=== PATIENT | male | born 1985 | race Caucasian/White ===

== ENCOUNTER 2019-02-26 20:40 | Emergency (ER) | payer OTHER, SELFPAY ==
[2019-02-26 20:40] VITALS: BP 133/83; PULSE 92; RESP 15; TEMP 36.8; O2SAT 98; BMI 23.6
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
--- NOTE | 2019-02-26 20:49 | RAD_ITS ---
STUDY: X-RAY - RIGHT FOOT CLINICAL: Male, 33 years old. Box fell on foot, pain TECHNIQUE: 3 view(s) of the foot. COMPARISON: None. FINDINGS: Normal talus, calcaneus, and tarsal bones. Normal visualized subtalar, talonavicular, calcaneocuboid, tarsal and tarsometatarsal articulations. Normal metatarsi. Normal metatarsophalangeal joint of the great toe. Normal tibial and fibular sesamoid bones. Normal interphalangeal joint of the great toe. Normal phalanges of the great toe. Normal second through fifth metatarsophalangeal joints. Normal interphalangeal joints and phalanges of the lesser toes. The soft tissue structures are unremarkable. RAD/Foot min 3 Views IMPRESSION: No acute osseous injury is evident. Electronically Signed: Alexis Slade MD at 21:13 EDT Tel , Service support ,
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
== END 2019-02-26 21:32 | disposition home or self-care (01) ==
PROVIDERS: Emergency Provider Emergency Medicine; Family Provider Family Medicine; PCP Family Medicine
DX: S80.11XA Contusion of right lower leg, initial encounter (principal); S90.31XA Contusion of right foot, initial encounter; S97.81XA Crushing injury of right foot, initial encounter; S87.81XA Crushing injury of right lower leg, initial encounter; W20.8XXA Other cause of strike by thrown, projected or falling object, initial encounter; Y93.9 Activity, unspecified; Y92.512 Supermarket, store or market as the place of occurrence of the external cause; Y99.9 Unspecified external cause status
CPT/HCPCS: 73590; 73630; 99282

== ENCOUNTER 2019-04-15 14:45 | Emergency (ER) | payer OTHER, SELFPAY ==
[2019-04-15 14:46] VITALS: BP 120/105; PULSE 98; RESP 16; TEMP 36.6; O2SAT 100; BMI 25.0
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
[2019-04-15 15:27] VITALS: BP 130/90; PULSE 91; RESP 18; O2SAT 99
== END 2019-04-15 15:28 | disposition home or self-care (01) ==
LOC: ED 15:10
PROVIDERS: Emergency Provider Emergency Medicine; Family Provider Family Medicine; PCP Family Medicine
DX: E86.0 Dehydration (principal); T67.5XXA Heat exhaustion, unspecified, initial encounter; X58.XXXA Exposure to other specified factors, initial encounter; Y93.9 Activity, unspecified; Y92.9 Unspecified place or not applicable; Y99.9 Unspecified external cause status; Z87.891 Personal history of nicotine dependence
CPT/HCPCS: 99284

== ENCOUNTER → 2021-05-23 10:29 | Outpatient (CLI) | payer OTHER, SELFPAY | PROVIDERS: PCP Family Medicine; Referring Provider Family Medicine; Visit Provider Family Medicine | DX: G47.10 Hypersomnia, unspecified (principal) | CPT/HCPCS: 95806 ==

== ENCOUNTER 2022-12-03 14:42 | Emergency (ER) | payer OTHER, SELFPAY ==
[2022-12-03] VITALS (18 sets, daily range): BP systolic 132–158; BP diastolic 88–113; PULSE 81–115; RESP 13–28; TEMP 36.6; O2SAT 94–99; BMI 25.9; BMI 26.0
--- NOTE | 2022-12-03 14:49 | CT_ITS ---
STUDY: CT HEAD STROKE PROTOCOL W/O CONTRAST INJECTION REASON FOR EXAM: Male, 36 years old. Neuro deficit, acute, stroke suspected RADIATION DOSAGE (If Supplied By Facility): CTDIvol = ( 44.99 ) mGy, DLP = ( 829.85 ) mGycm TECHNIQUE: Transaxial CT imaging of the brain was performed without administration of intravenous contrast material. Individualized dose optimization techniques were used for this CT. COMPARISON: No relevant priors. FINDINGS: Normal soft tissue structures. Normal calvarium. Normal size ventricles and extra-axial spaces for the patient''s age. Normal white matter tracts of the cerebral hemispheres. Normal basal ganglia and thalami. Normal brainstem. Normal cerebellum. There is no intracranial hemorrhage. There are no findings of an acute ischemic infarction. Partial opacification of the left maxillary sinus. 1.1 cm polyp in the anterior aspect of the left sphenoid sinus. ASPECT score: 10 CT/STROKE Brain/Head without Cont IMPRESSION: Normal unenhanced CT scan of the brain. Partial opacification of the left maxillary sinus and 1.1 cm polyp in the anterior aspect of the left sphenoid sinus.. N.B. : The above Results were Read Back by Yves Nails MD to Dr Benjamin MD, and understanding confirmed on 12/03/2022 15:06:11 (ET). Electronically Signed: Yves Nails MD at 15:08 EDT ,
--- NOTE | 2022-12-03 14:50 | CT_ITS ---
STUDY: CTA HEAD AND NECK WITH CONTRAST REASON FOR EXAM: Male, 36 years old. Neuro deficit, acute, stroke suspected RADIATION DOSAGE (If Supplied By Facility): CTDIvol = ( 17.5 ) mGy, DLP = ( 757.56 ) mGycm TECHNIQUE: CT angiography was performed with a multi-detector CT scanner. Data acquisition was obtained from the skull base through the vertex following intravenous administration of IV 100mL [id number]-[id number]. MIP images were reconstructed from the axial data set. Post-processing of the angiographic images was performed, with multiplanar reformation and 3D reconstruction. Individualized dose optimization techniques were used for this CT. COMPARISON: No relevant priors. FINDINGS: Normal bilateral petrous carotid arteries. Normal right cavernous carotid artery with a normal supraclinoid bifurcation. Normal left cavernous carotid artery with a normal supraclinoid bifurcation. Normal right A1 segments of the anterior cerebral artery. There is hypoplastic development of the left A1 segment of the anterior cerebral arteries with an atretic but intact artery. Normal intact anterior communicating artery (ACOM). Normal bilateral A2 segments of the anterior cerebral arteries. Normal right M1 and M2 segments of the middle cerebral arteries, with a normal M1 bifurcation. Normal left M1 and M2 segments of the middle cerebral arteries, with a normal M1 bifurcation. Normal right posterior communicating artery (PCOM). Normal left posterior communicating artery (PCOM). Normal bilateral vertebral arteries. Normal basilar artery with a normal basilar bifurcation. The visualized bilateral superior cerebellar (SCA) arteries are normal. Normal bilateral P1, P2 and visualized P3 segments of the posterior cerebral arteries. There is no demonstrated aneurysm of the tejon of [place]. Polyp or retention cyst at the base of the left maxillary sinus. Mucosal polyp or retention cyst seen in the left sphenoid sinus. AORTIC ARCH: Normal visualized aortic arch. Normal origins of the brachiocephalic, left common carotid, and left subclavian arteries. RIGHT CAROTID ARTERIES: Normal right common carotid artery (CCA). Normal right common carotid bulb. Normal origin of the right internal carotid (ICA) artery without a hemodynamically significant stenosis. Normal visualized cervical portion of the right internal carotid artery. Normal origin of the right external carotid artery (ECA). LEFT CAROTID ARTERIES: Normal left common carotid artery (CCA). Normal left common carotid bulb. Normal origin of the left internal carotid (ICA) artery without a hemodynamically significant stenosis. Normal visualized cervical portion of the left internal carotid artery. Normal origin of the left external carotid artery (ECA). VERTEBRAL ARTERIES: Normal bilateral vertebral arteries. CT/STROKE CTA Head AND Neck W/Con IMPRESSION: Normal CTA Head and neck with contrast. N.B. : The above Results were Read Back by Yves Nails MD to Pratt MD, and understanding confirmed on 12/03/2022 15:26:21 (ET). Electronically Signed: Yves Nails MD at 15:28 EDT ,
--- NOTE | 2022-12-03 14:51 | NURSING ---
STROKE ALERT CALLED
--- NOTE | 2022-12-03 14:52 | NURSING ---
NO OLD EKGS
--- NOTE | 2022-12-03 14:53 | ED.VIS.STROK ---
HPI <Dr. 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 He denies smoking or drug use. Patient states at approximately 1430 he had trouble seeing out of his left eye. His partner states he had trouble visualizing the stop sign and had trouble reading. He believes it was only the left eye and not the right eye. He also had trouble with his balance and complained of numbness left side of his face. He has no history of hypercoagulability. He has no history of migraine headaches. There is no history of recent head trauma. There is no family history of subarachnoid hemorrhage. Prior similar symptoms: No Recent Illness/Hospitalization: No PFSH <Dr. Rob Alexander MD - Last Filed: 12/04/22 07:13> PFSH Medical History no medical history no medical history Home Medications NK 02/26/19 [History Last Taken Unknown] Allergy/AdvReac Type Severity Reaction Status Date / Time No Known Allergies Allergy Verified 12/03/22 14:46 Social History (Updated 12/03/22 @ 14:[address] Rob Alexander MD) household members: spouse and children Smoking Status: Former smoker substance use type: does not use ROS <Dr. Rob Alexander MD - Last Filed: 12/04/22 07:13> ROS ED Constitutional Constitutional ED: Denies chills, fever(s), subjective, sweats or weakness Eyes Eyes: Reports blurry vision left and change in vision left; Denies diplopia ENT ENT ED: Denies ear pain, rhinorrhea or sore throat Cardiovascular Cardiovascular: Denies chest pain, palpitations, paroxysmal nocturnal dyspnea or racing heartbeat Respiratory/Chest Respiratory/Chest: Denies cough, dyspnea, dyspnea on exertion or paroxysmal nocturnal dyspnea Gastrointestinal Gastrointestinal: Denies abdominal pain, constipation, diarrhea, melena, nausea or vomiting Genitourinary Genitourinary ED: Denies dysuria, hematuria or urinary frequency Musculoskeletal Musculoskeletal: Denies arthralgias, back pain, myalgias or neck pain Integumentary Denies abscess Neurologic Neurologic: Denies headache(s), paresthesias or weakness Psychiatric Psychiatric: Denies anxiety or depression Endocrine Endocrinology: Denies polydipsia, polyphagia or polyuria Hematologic/Lymphatic Hematologic/Lymphatic: Denies easy bleeding or easy bruising EXAM <Dr. Rob Alexander MD - Last Filed: 12/04/22 07:13> Physical Exam Const Vital Signs: 12/03/22 14:43 12/03/22 14:49 12/03/22 15:47 Temperature 98 F Temperature Source Temporal Pulse Rate 81 107 H Respiratory Rate 16 17 Blood Pressure 158/105 H Blood Pressure Mean 122 Pulse Ox 99 97 Oxygen Delivery Method Room Air Room Air 12/03/22 15:50 12/03/22 16:00 12/03/22 16:00 Temperature Temperature Source Pulse Rate 112 H 112 H 112 H Respiratory Rate 28 H 21 H 21 H Blood Pressure 156/98 H Blood Pressure Mean 115 Pulse Ox 96 98 98 Oxygen Delivery Method 12/03/22 16:10 12/03/22 16:15 12/03/22 16:20 Temperature Temperature Source Pulse Rate 103 H 105 H 115 H Respiratory Rate 19 H 21 H 25 H Blood Pressure 150/88 H Blood Pressure Mean 107 Pulse Ox 96 97 96 Oxygen Delivery Method 12/03/22 16:30 12/03/22 16:30 12/03/22 16:40 Temperature Temperature Source Pulse Rate 102 H 102 H 113 H Respiratory Rate 15 15 21 H Blood Pressure 139/101 H Blood Pressure Mean 113 Pulse Ox 94 94 95 Oxygen Delivery Method 12/03/22 16:45 12/03/22 16:50 12/03/22 17:00 Temperature Temperature Source Pulse Rate 111 H 110 H 97 Respiratory Rate 16 20 H 17 Blood Pressure 135/98 H 133/97 H Blood Pressure Mean 107 109 Pulse Ox 95 95 96 Oxygen Delivery Method 12/03/22 17:00 12/03/22 17:10 12/03/22 17:15 Temperature Temperature Source Pulse Rate 97 102 H 101 H Respiratory Rate 17 23 H 16 Blood Pressure 132/113 H Blood Pressure Mean 119 Pulse Ox 96 96 98 Oxygen Delivery Method 12/03/22 14:49 12/03/22 17:15 12/03/22 18:04 Temperature Temperature Source Pulse Rate 81 101 H Respiratory Rate 16 16 Blood Pressure 158/105 H Blood Pressure Mean 122 Pulse Ox 99 98 97 Oxygen Delivery Method 12/03/22 18:10 12/03/22 18:14 Temperature Temperature Source Pulse Rate 102 H 94 Respiratory Rate 23 H 13 Blood Pressure 132/92 H Blood Pressure Mean 103 Pulse Ox 96 96 Oxygen Delivery Method Positive well nourished and well developed General Appearance ED: well developed and NAD HEENT Reports moist mucous membranes atraumatic Eyes EOMs intact bilaterally Eyes Narrative: There is no nystagmus. General Eye ED: Negative for pale conjunctiva or scleral icterus Neck no lymphadenopathy, supple and no JVD Chest Wall inspection of chest normal and palpation of chest normal Resp normal respiratory effort and clear to auscultation bilaterally Cardio no murmurs Rate: regular rate Rhythm: regular rhythm Heart Sounds: S1 normal and S2 normal GI normal to inspection, nondistended, normoactive bowel sounds, soft to palpation, non-tender, non-distended and no masses Extremity normal to inspection Neuro oriented x3, CN's II-XII intact bilaterally and no sensory deficits noted [place] Coma Scale: document GCS findings Spontaneous Obeys Commands Oriented 15 Sensorium / Orientation: alert Speech: speech normal Gait (Neuro): normal gait Motor Exam: strength 5/5 throughout Psych mental status grossly normal Skin no wounds General Skin Exam: Negative for jaundice Lesions: no lesions Rashes: no rashes NIHSS NIHSS Initial: 1a Level of Consciousness: 0 1b LOC Questions (Score 2 if aphasic/stupor): 0 1c LOC Commands (Only score 1st attempt): 0 2 Best Gaze (If aphasic, use reflexive mvmts.): 0 3 Visual: 0 4 Facial Palsy: 0 5 Motor Arm Right (UN = amputation/fusion): 0 5 Motor Arm Left: 0 6 Motor Leg Right: 0 6 Motor Leg Left: 0 7 Limb ataxia (Only + if out of proportion): 0 8 Sensory (Aphasia/stupor=0 or 1, coma=2): 0 9 Best Language: 0 10 Dysarthria (mute, coma=2, intubated=UN): 0 11 Extinction and Inattention (only scored if +): 0 Total Score: 0 <Dr. Sabra Martínez MD - Last Filed: 12/03/22 18:18> Physical Exam Const Vital Signs: 12/03/22 14:43 12/03/22 14:49 12/03/22 15:47 Temperature 98 F Temperature Source Temporal Pulse Rate 81 107 H Respiratory Rate 16 17 Blood Pressure 158/105 H Blood Pressure Mean 122 Pulse Ox 99 97 Oxygen Delivery Method Room Air Room Air 12/03/22 15:50 12/03/22 16:00 12/03/22 16:00 Temperature Temperature Source Pulse Rate 112 H 112 H 112 H Respiratory Rate 28 H 21 H 21 H Blood Pressure 156/98 H Blood Pressure Mean 115 Pulse Ox 96 98 98 Oxygen Delivery Method 12/03/22 16:10 12/03/22 16:15 12/03/22 16:20 Temperature Temperature Source Pulse Rate 103 H 105 H 115 H Respiratory Rate 19 H 21 H 25 H Blood Pressure 150/88 H Blood Pressure Mean 107 Pulse Ox 96 97 96 Oxygen Delivery Method 12/03/22 16:30 12/03/22 16:30 12/03/22 16:40 Temperature Temperature Source Pulse Rate 102 H 102 H 113 H Respiratory Rate 15 15 21 H Blood Pressure 139/101 H Blood Pressure Mean 113 Pulse Ox 94 94 95 Oxygen Delivery Method 12/03/22 16:45 12/03/22 16:50 12/03/22 17:00 Temperature Temperature Source Pulse Rate 111 H 110 H 97 Respiratory Rate 16 20 H 17 Blood Pressure 135/98 H 133/97 H Blood Pressure Mean 107 109 Pulse Ox 95 95 96 Oxygen Delivery Method 12/03/22 17:00 12/03/22 17:10 12/03/22 17:15 Temperature Temperature Source Pulse Rate 97 102 H 101 H Respiratory Rate 17 23 H 16 Blood Pressure 132/113 H Blood Pressure Mean 119 Pulse Ox 96 96 98 Oxygen Delivery Method 12/03/22 14:49 12/03/22 17:15 12/03/22 18:04 Temperature Temperature Source Pulse Rate 81 101 H Respiratory Rate 16 16 Blood Pressure 158/105 H Blood Pressure Mean 122 Pulse Ox 99 98 97 Oxygen Delivery Method 12/03/22 18:10 12/03/22 18:14 Temperature Temperature Source Pulse Rate 102 H 94 Respiratory Rate 23 H 13 Blood Pressure 132/92 H Blood Pressure Mean 103 Pulse Ox 96 96 Oxygen Delivery Method Neuro [place] Coma Scale: document GCS findings 15 NIHSS NIHSS Initial: Total Score: 0 MDM <Dr. Rob Alexander MD - Last Filed: 12/04/22 07:13> [facility] Narrative Medical decision making narrative: With patient having headache prior to neurologic symptoms this may represent a complex migraine. This does not represent a ocular migraine since it involves only 1 eye. Concerned this may present problems with posterior circulation since he has problems with balance as well as vision. Presently his NIH is 0. History & Record Review Additional record(s) reviewed:: Prior ED visit (Patient has no records since 2019.) and Prior labs Lab Data Attestation: I reviewed the patient's lab results. Lab results narrative: White count is normal as is the H&H. Differential reveals 62% lymphocytes, 21% monocytes and 7% eosinophils.. Coags unremarkable. Basic metabolic panel is unremarkable. Troponin is normal. Labs: Laboratory Results - last 24 hr 12/03/22 12/03/22 12/03/22 15:00 15:00 15:00 WBC 5.0 RBC 5.45 Hgb 16.0 Hct 47.7 MCV 87.5 MCH 29.4 MCHC 33.5 RDW Std Deviation 39.1 RDW Coeff of Florencia 12.3 Plt Count 343 MPV 9.1 Immature Gran % (Auto) 0.200 Neut % (Auto) 7.8 L Lymph % (Auto) 62.3 H [place] % (Auto) 21.6 H Eos % (Auto) 6.9 H Baso % (Auto) 1.2 H Absolute Neuts (auto) 0.4 L Absolute Lymphs (auto) 3.14 Nucleated RBC % 0 Differential Comment SCANNED PT 13.0 INR 1.0 APTT 29.5 Sodium 141 Potassium 3.3 L Chloride 106 Carbon Dioxide 28.0 Anion Gap 7 BUN 14 Creatinine 1.02 Estim Creat Clear Calc 102.38 Est GFR (MDRD) Af Amer 105 Est GFR (MDRD) Non-Af 87 BUN/Creatinine Ratio 13.7 Glucose 107 H Calcium 9.5 Troponin I High Sens < 3 L Radiography Chest X-Ray - ED: 1 View and Read by ED Physician (Cardiac silhouette and size normal. Lung parenchyma is unremarkable. There is slight prominence of the pulmonary vessels in the perihilar region. Osseous structures unremarkable. Independent reviewed interpreted by me at 1526.) Diagnostic Testing: Clinical Impression(s) from Imaging Studies Brain CT 12/03/22 14:49 IMPRESSION: Normal unenhanced CT scan of the brain. Partial opacification of the left maxillary sinus and 1.1 cm polyp in the anterior aspect of the left sphenoid sinus.. N.B. : The above Results were Read Back by Yves Nails MD to Dr Benjamin MD, and understanding confirmed on 12/03/2022 15:06:11 (ET). Electronically Signed: Yves Nails MD at 15:08 EDT , Head/Neck CTA 12/03/22 14:50 IMPRESSION: Normal CTA Head and neck with contrast. N.B. : The above Results were Read Back by Yves Nails MD to Pratt MD, and understanding confirmed on 12/03/2022 15:26:21 (ET). Electronically Signed: Yves Nails MD at 15:28 EDT , ADDENDUM: 12/03/22 1535 IMPRESSION: Normal CTA Head and neck with contrast. N.B. : The above Results were Read Back by Yves Nails MD to Pratt MD, and understanding confirmed on 12/03/2022 15:26:21 (ET). Electronically Signed: Yves Nails MD at 15:28 EDT , Brain MRI 12/03/22 15:13 IMPRESSION: Multiple sinus polyps otherwise Normal unenhanced MRI of the brain. Electronically Signed: Delroy Solorio MD at 18:07 EDT , Chest X-Ray 12/03/22 15:22 IMPRESSION: Normal x-ray examination of the chest. Electronically Signed: Yves Nails MD at 15:32 EDT , EKG Initial EKG: Attestation: I personally reviewed and interpreted this EKG as follows: Interpretation: Sinus Tachycardia (Rate is 115. [place] to left. [place] interval is 148. Cures duration 76 ms. QT duration 3 to 24 ms.) Management Discussion w/another healthcare provider: Radiologist (I was contacted by radiologist at 1505 that the unenhanced scan was negative for any intracranial pathology. He agrees there is pathology in the right and left maxillary sinus as well as sphenoid sinus.) Treatment and Re-Evaluation Narrative: The neurologist [facility] evaluate patient. The neurologist is Dr. Morris. He agrees complex migraine versus TIA. Recommendation is MRI. If MRI is negative patient may go home. He denied history of stroke when asked by me. He states he has had migraine headaches but is never had deficit before. In light of the CBC differential patient was asked regarding any viral symptoms. He denies. Patient also states his blood pressure initially is 110. He had multiple readings with systolic in the 150 range. Diastolic has been above 100. <Dr. Sabra Martínez MD - Last Filed: 12/03/22 18:18> [facility] Lab Data Labs: Laboratory Results - last 24 hr 12/03/22 12/03/22 12/03/22 15:00 15:00 15:00 WBC 5.0 RBC 5.45 Hgb 16.0 Hct 47.7 MCV 87.5 MCH 29.4 MCHC 33.5 RDW Std Deviation 39.1 RDW Coeff of Florencia 12.3 Plt Count 343 MPV 9.1 Immature Gran % (Auto) 0.200 Neut % (Auto) 7.8 L Lymph % (Auto) 62.3 H [place] % (Auto) 21.6 H Eos % (Auto) 6.9 H Baso % (Auto) 1.2 H Absolute Neuts (auto) 0.4 L Absolute Lymphs (auto) 3.14 Nucleated RBC % 0 Differential Comment SCANNED PT 13.0 INR 1.0 APTT 29.5 Sodium 141 Potassium 3.3 L Chloride 106 Carbon Dioxide 28.0 Anion Gap 7 BUN 14 Creatinine 1.02 Estim Creat Clear Calc 102.38 Est GFR (MDRD) Af Amer 105 Est GFR (MDRD) Non-Af 87 BUN/Creatinine Ratio 13.7 Glucose 107 H Calcium 9.5 Troponin I High Sens < 3 L Radiography Diagnostic Testing: Clinical Impression(s) from Imaging Studies Brain CT 12/03/22 14:49 IMPRESSION: Normal unenhanced CT scan of the brain. Partial opacification of the left maxillary sinus and 1.1 cm polyp in the anterior aspect of the left sphenoid sinus.. N.B. : The above Results were Read Back by Yves Nails MD to Dr Benjamin MD, and understanding confirmed on 12/03/2022 15:06:11 (ET). Electronically Signed: Yves Nails MD at 15:08 EDT , Head/Neck CTA 12/03/22 14:50 IMPRESSION: Normal CTA Head and neck with contrast. N.B. : The above Results were Read Back by vYes Nails MD to Pratt MD, and understanding confirmed on 12/03/2022 15:26:21 (ET). Electronically Signed: Yves Nails MD at 15:28 EDT , ADDENDUM: 12/03/22 1535 IMPRESSION: Normal CTA Head and neck with contrast. N.B. : The above Results were Read Back by Yves Nails MD to Pratt MD, and understanding confirmed on 12/03/2022 15:26:21 (ET). Electronically Signed: Yves Nails MD at 15:28 EDT , Brain MRI 12/03/22 15:13 IMPRESSION: Multiple sinus polyps otherwise Normal unenhanced MRI of the brain. Electronically Signed: Delroy Solorio MD at 18:07 EDT , Chest X-Ray 12/03/22 15:22 IMPRESSION: Normal x-ray examination of the chest. Electronically Signed: Yves Nails MD at 15:32 EDT , Treatment and Re-Evaluation Narrative: The neurologist [facility] evaluate patient. The neurologist is Dr. Morris. He agrees complex migraine versus TIA. Recommendation is MRI. If MRI is negative patient may go home. He denied history of stroke when asked by me. He states he has had migraine headaches but is never had deficit before. In light of the CBC differential patient was asked regarding any viral symptoms. He denies. Patient also states his blood pressure initially is 110. He had multiple readings with systolic in the 150 range. Diastolic has been above 100. Patient signed out to me pending MRI of the brain. MRI returns with no acute findings. Patient is had no recurrent symptoms while in the emergency room. Systolic pressure is currently in the 130s. Patient will be discharged home with at this time. Discharge Plan Triage Chief Complaint: Neuro S/Sx ED Provider: Rob Alexander Dx/Rx/DC Orders Clinical Impression: Atypical migraine, Elevated blood pressure reading without diagnosis of hypertension, Sinus tachycardia Instructions: ED Headache Unspecified, ED Hypertension, To Be Confirmed Prescriptions: No Action NK Primary Care Provider: Ramon Ojeda Referrals: Ramon Ojeda DO [Primary Care Provider] - 1 Week Disposition Disposition: Home, Self Care Discharge Date/Time: 12/03/22 18:22
[2022-12-03 15:10] LABS: Absolute Lymphocyte Count 3.14 X10^3/uL (0.83-4.51); Absolute Neutrophil Count 0.4 X10^3/uL (2.0-7.7); Basophil# 0.06 X10^3/uL; Basophil% 1.2 % (0-1); Eosinophil# 0.35 X10^3/uL; Eosinophils% 6.9 % (0-5); Hematocrit 47.7 % (40-54); Lymphocyte # 3.14 X10^3/ul (0.83-4.51); Lymphocyte % 62.3 % (19-41); Mean Corp Hgb Conc 33.5 g/dL (32-36); Mean Corpuscular Hgb 29.4 pg (27.0-32.0); Mean Corpuscular Volume 87.5 fL (80-94); Mean Platelet Vol. 9.1 fl (6.2-12.0); Monocyte# 1.09 X10^3/uL; Monocyte% 21.6 % (0-10); NRBC Flagged by Analyzer 0 % (0-5); Neutrophil # 0.39 X10^3/uL (2.7-7.7); Neutrophil % 7.8 % (47-70); POSITIVE DIFFERENTIAL YES; Platelet Count 343 K/mm3 (150-450); RBC Distribution Width CV 12.3 % (11.6-14.6); RBC Distribution Width SD 39.1 fl (35.1-43.9); Red Blood Count 5.45 M/mm3 (4.6-6.2)
--- NOTE | 2022-12-03 15:13 | MRI_ITS ---
STUDY: MRI BRAIN WITHOUT CONTRAST REASON FOR EXAM: Male, 36 years old. Visual change left, coordination abnormality TECHNIQUE: Standardized multiplanar fat and water weighted pulse sequences were obtained. COMPARISON: CTA brain December 03, 2022 FINDINGS: Normal size of the ventricles and extra-axial spaces for the patient''s age. Normal white matter tracts of the supratentorial brain. Normal bilateral basal ganglia. Normal thalami. There is no extra-axial fluid accumulation. Normal flow voids within the major intracranial circulation suggesting patency by spin echo criteria. Normal sella turcica, pituitary gland, infundibular stalk, optic chiasm and hypothalamus. Normal tectal plate and pineal gland. Normal midbrain, margo and medulla. Normal cerebellum. Normal basal cisterns. Normal bilateral temporal bones. Normal bilateral internal auditory canals. No demonstrated orbital abnormality, within the constraints of a routine brain study. Multiple polyps or cysts in the left maxillary sinus and sphenoid sinus. Normal calvarium and skull base. Normal visualized soft tissue structures. Normal visualized upper cervical spine. MRI/Brain without Contrast IMPRESSION: Multiple sinus polyps otherwise Normal unenhanced MRI of the brain. Electronically Signed: Delroy Solorio MD at 18:07 EDT ,
[2022-12-03 15:19] LABS: Partial Thromboplast Time 29.5 Seconds (24.1-36.2)
--- NOTE | 2022-12-03 15:22 | RAD_ITS ---
STUDY: X-RAY CHEST REASON FOR EXAM: Male, 36 years old. Neuro deficit, acute, stroke suspected TECHNIQUE: Single AP portable view of the chest. COMPARISON: None. FINDINGS: EKG electrodes are seen. The lungs are clear and expanded. There is no demonstrated pleural abnormality. Normal size heart. Normal mediastinum and brayan. Normal visualized pulmonary arteries. Normal visualized aortic arch and descending thoracic aorta. Normal visualized thoracic spine. Normal visualized ribs, clavicles, and shoulders. There is no demonstrated abnormality of the visualized soft tissue structures of the upper abdomen. RAD/Chest 1 View IMPRESSION: Normal x-ray examination of the chest. Electronically Signed: Yves Nails MD at 15:32 EDT ,
[2022-12-03 15:24] LABS: Differential Indicated SCAN CRITERIA MET
[2022-12-03 15:30] LABS: Anion Gap 7 (5-15); BUN 14 mg/dL (7-18); BUN/Creat Ratio 13.7 RATIO (10-20); Calcium,Total 9.5 mg/dL (8.5-10.1); Chloride 106 mmol/L (98-107); Creatinine, Serum 1.02 mg/dL (0.70-1.30); EST Glomerular Filtration Rate 87 mL/min (>60); Est Glom Filt Rate - Afr Amer 105 mL/min (>60); Estimated Creatinine Clearance 102.38 ml/min; Glucose 107 mg/dL (74-106); Potassium 3.3 mmol/L (3.5-5.1); Sodium Level 141 mmol/L (136-145); Troponin-I HS < 3 pg/mL (3.0-78.0)
[2022-12-03 15:45] LABS: Differential Comment SCANNED
--- NOTE | 2022-12-03 15:46 | CHAPLAIN ---
Type of Pastoral Visit ___ Initial Visit ___ Follow-up Visit ___ On-call Visit ___ General Patient Visit ___ Spiritual Assessment ___ Family Conference ___ Bereavement _x__ Rapid Response ___ Code Blue ___ Other (describe below) Pastoral Care Referral From ___ Patient ___ Family ___ Nurse ___ Physician ___ Computational Physicist ___ Team Assembler _x__ Other (describe below) Sacrament/Intervention ___ Active listening ___ Anointing ___ Judaism ___ Bereavement ___ Communion ___ [place] exploration ___ ___ Life review ___ Prayer ___ Reconciliation ___ Sacrament of Sick _x__ Supportive presence ___ Wedding ___ Other (describe below) Pastoral Comments responded to stroke alert; patient was taken to CT scan; family is not present; met pt after CT and right before eval from [facility] neurology; pt states that he is doing fine and does not need anything at this time; SW was also present to offer support
[2022-12-05 09:35] LABS: Bedside Glucose 108 mg/dL (74-106)
== END 2022-12-03 18:22 | disposition home or self-care (01) ==
PROVIDERS: Emergency Provider Emergency Medicine; PCP Family Medicine; Visit Provider Emergency Medicine
DX: G43.909 Migraine, unspecified, not intractable, without status migrainosus (principal); R03.0 Elevated blood-pressure reading, without diagnosis of hypertension; R00.0 Tachycardia, unspecified; Z87.891 Personal history of nicotine dependence
CPT/HCPCS: 70450; 70496; 70498; 70551; 71045; 80048; 82962; 84484; 85025; 85610; 85730; 93005; 99285; Q9967; A4216

== ENCOUNTER 2025-06-05 09:50 | Day surgery (SDC) | payer OTHER, SELFPAY ==
[2025-06-05] VITALS (11 sets, daily range): BP systolic 114–147; BP diastolic 72–103; PULSE 90–122; RESP 14–18; TEMP 36.9–37.5; O2SAT 93–100; BMI 26.5
--- NOTE | 2025-06-05 10:14 | CT_ITS ---
PROCEDURE: CT/Pelvis WITH IV Contrast
[2025-06-05 10:28] LABS: Mucous, Urine 0 SEEN /hpf (<or=2+); Red Blood Cells-Urine 0 SEEN /hpf (0-5); Squamous Epithelial Cells - UA 0 SEEN /hpf (0-5)
[2025-06-05 10:29] LABS: Hematocrit 45.0 % (40-54); Hemoglobin 15.5 g/dL (13.0-16.5); Immature Granulocytes Count 0.010 X10^3/uL (0.0-0.0); Mean Corp Hgb Conc 34.4 g/dL (32-36); Mean Corpuscular Volume 86.9 fL (80-94); Mean Platelet Vol. 8.9 fl (6.2-12.0); NRBC Flagged by Analyzer 0 % (0-5); POSITIVE DIFFERENTIAL YES; Platelet Count 326 K/mm3 (150-450); RBC Distribution Width CV 11.8 % (11.6-14.6); RBC Distribution Width SD 37.7 fl (35.1-43.9); Red Blood Count 5.18 M/mm3 (4.6-6.2); White Blood Count 4.1 K/mm3 (4.4-11.0)
[2025-06-05 10:30] LABS: Differential Indicated SCAN CRITERIA MET
[2025-06-05 10:36] LABS: Color, Urine Straw (Yellow); Glucose, Dipstick Normal (Normal); Ketone-Dipstick Negative (Negative); Leukocyte Esterase-Dipstick Negative /ul (Negative); Nitrite-Dipstick Negative (Negative); Occult Blood-Urine 10 /ul (Negative); Protein-Dipstick Negative (Negative); Specific Gravity, Urine 1.005 (1.002-1.030); Urine Bilirubin Dipstick Negative (Negative)
--- NOTE | 2025-06-05 10:40 | EX.ED.DYSGE1 ---
HPI History of Present Illness Chief Complaint: Back Informant: patient and spouse/S.O. Narrative Narrative: 39-year-old male presenting to the emergency room for the evaluation of perineal pain. Patient states that on Thursday he had some discomfort in the perineum. Progressively has worsened. No limiting motion. Send sure if he is had any fevers but nothing documented. Denies any urinary symptoms but does note that at the end of urination when he has contraction of the pelvic floor and feels significant pain. He states that it is around the anus to the base of the penis. States not seeing any swelling or drainage. No history of inflammatory bowel disease. No history of this. PFSH PFSH Medical History Migraines Testicular hernia Medical History no medical history Home Medications ?Medication ?Instructions ?Recorded ?Last Taken ?Type NK 02/26/19 Unknown History Allergy/AdvReac Type Severity Reaction Status Date / Time No Known Allergies Allergy Verified 06/05/25 09:51 Family History no significant family his Surgical History Hx of hernia repair Surgical History no surgical history Social History household members: spouse and children Smoking Status: Former smoker substance use type: does not use ROS ROS ED Constitutional Constitutional ED: Reports sweats; Denies chills, fever(s) or weight loss Eyes Eyes: Denies change in vision or diplopia ENT ENT ED: Denies ear pain, rhinorrhea or sore throat Cardiovascular Cardiovascular: Denies chest pain, orthopnea, palpitations or racing heartbeat Respiratory/Chest Respiratory/Chest: Denies cough, dyspnea or orthopnea Gastrointestinal Gastrointestinal: Denies abdominal pain, diarrhea, nausea or vomiting Genitourinary Genitourinary ED: Reports other Details: See history of present illness ; Denies dysuria, hematuria or urinary frequency Musculoskeletal Musculoskeletal: Denies arthralgias or myalgias Integumentary Denies abscess or rash Neurologic Neurologic: Denies headache(s) or weakness Psychiatric Psychiatric: Denies anxiety, depression, suicidal ideation or suicidal thoughts Endocrine Endocrinology: Denies polydipsia, polyphagia or polyuria Allergic/Immunologic Allergic/Immunologic ED: Denies mouth swelling, tongue swelling or urticaria EXAM Physical Exam Const Vital Signs: 06/05/25 09:51 06/05/25 11:50 06/05/25 12:30 Temperature 98.5 F 99.0 F Temperature Source Oral Oral Pulse Rate 121 H 90 114 H Respiratory Rate 18 16 16 Blood Pressure 147/103 H 130/90 H 123/79 H Blood Pressure Mean 117 103 93 Pulse Ox 99 100 99 Oxygen Delivery Method Room Air 06/05/25 12:34 06/05/25 12:55 Temperature 99.0 F 99.0 F Temperature Source Pulse Rate 112 H 112 H Respiratory Rate 16 16 Blood Pressure 123/79 H 123/79 H Blood Pressure Mean 93 Pulse Ox 100 100 Oxygen Delivery Method Positive well nourished and well developed Constitutional Narrative: Patient appears very comfortable in the bed. General Appearance ED: well developed HEENT Reports normocephalic, head/scalp atraumatic and moist mucous membranes Eyes PERRL and EOMs intact bilaterally Neck no lymphadenopathy, supple and no JVD Resp normal respiratory effort and clear to auscultation bilaterally Cardio regular rate, regular rhythm and no murmurs GI normal to inspection, nondistended, normoactive bowel sounds and non-tender Palpation: soft Narrative: Scrotal penile and testicular exam appears normal. I do not appreciate any significant fullness in the perineum swelling or erythema. There is tenderness particularly on the left perineal aspect of the anus. No significant hemorrhoidal disease. Back/Spine no CVA tenderness and normal ROM Extremity normal to inspection General Extremety ED: Negative for edema General Extremity: Negative for edema Neuro oriented x3 and CN's II-XII intact bilaterally Sensorium / Orientation: alert Motor Exam: strength 5/5 throughout Psych mental status grossly normal Mood & Affect: Negative for depressed or tearful Skin no rashes or lesions noted and no wounds MDM MDM MDM Narrative Medical decision making narrative: Differential diagnosis includes but not limited to perirectal/perineal abscess UTI prostatitis hemorrhoidal disease foreign body Based on the physical exam and the history and concerned mostly about an abscess. Therefore basic blood work was obtained shows a white count of 4.1 glucose [address] of the pelvis with IV contrast demonstrates an abscess. Please see radiologist read for full details. I spoke with general surgery and performed a bedside ultrasound the area that I believe the abscess is located showing an abscess that is about a centimeter and a half deep to the skin surface. I spoke with the patient and his at bedside. Using shared decision making I discussed with surgery again and the plan is to take him to the operating room for surgical drainage. He has received Dilaudid for pain History & Record Review Discussion w/independent historian: Patient and Significant other Lab Data Attestation: I reviewed the patient's lab results. Labs: Laboratory Results - last 24 hr 06/05/25 06/05/25 10:05 10:22 WBC 4.1 L RBC 5.18 Hgb 15.5 Hct 45.0 MCV 86.9 MCH 29.9 MCHC 34.4 RDW Std Deviation 37.7 RDW Coeff of Florencia 11.8 Plt Count 326 MPV 8.9 Immature Gran % (Auto) 0.200 Neut % (Auto) 14.5 L Lymph % (Auto) 44.0 H [place] % (Auto) 36.7 H Eos % (Auto) 3.4 Baso % (Auto) 1.2 H Absolute Neuts (auto) 0.6 L Absolute Lymphs (auto) 1.82 Nucleated RBC % 0 Differential Comment COMMENT Sodium 137 Potassium 3.8 Chloride 102 Carbon Dioxide 24.1 Anion Gap 11 BUN 11 Creatinine 0.98 Estim Creat Clear Calc 103.46 Est GFR (MDRD) Non-Af 100 BUN/Creatinine Ratio 11.2 Glucose 103 H Calcium 9.2 Urine Color Straw Urine Clarity Clear Urine pH 6.5 Ur Specific [place] 1.005 Urine Protein Negative Urine Glucose (UA) Normal Urine Ketones Negative Urine Occult Blood 10 H Urine Nitrite Negative Urine Bilirubin Negative Urine Urobilinogen Normal Ur Leukocyte Esterase Negative Urine RBC 0 SEEN Urine WBC 0 SEEN Ur Squamous Epith Cells 0 SEEN Urine Bacteria 0 SEEN Urine Mucus 0 SEEN Radiography Diagnostic Testing: Clinical Impression(s) from Imaging Studies Pelvis CT 06/05/25 10:14 IMPRESSION: I suspect 11 mm x 12 mm lucency in the midportion of the perineum. This most likely represents a localized abscess. Surrounding inflammatory changes are seen. Reading Location: [id number] Management Discussion w/another healthcare provider: Aeronautical Products Sales Engineer (Dr. Sherman (surgery)) Discharge Plan Dx/Rx/DC Orders Clinical Impression: Abscess, perirectal, Pain in male perineum Disposition Disposition: Acute Care Hospital [facility] Discharge Date/Time: 06/05/25 12:43
[2025-06-05 10:57] LABS: Anion Gap 11 (5-15); BUN 11 mg/dL (4-19); BUN/Creat Ratio 11.2 RATIO (10-20); Calcium,Total 9.2 mg/dL (7.6-11.0); Carbon Dioxide 24.1 mmol/L (21.0-32.0); Chloride 102 mmol/L (98-108); Estimated Creatinine Clearance 103.46 ml/min (50-250); Glucose 103 mg/dL (70-99); Potassium 3.8 mmol/L (3.3-5.1)
--- NOTE | 2025-06-05 12:37 | PCM.HP.STD ---
HPI - General General Date of Admission: 06/05/25 Date of Service: 06/05/25 Chief Complaint: Rectal pain HPI Narrative ANSLEY DICKENS, is a 39 M who presents 3 day history of rectal pain. He notes discomfort started Thursday. He states he was moving heavy items on and the pain started Thursday morning. He noted on Thursday the pain became progressively worse especially after urination. He describes the pain as someone taking a knife to the rectum. Patient waited until Thursday to see his PCP who sent him to the ED. 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 He notes nausea associated with the pain. He denies any drainage. He notes his temperature elevated to 100.0 degrees Fahrenheit. He denies having any similar episodes of rectal pain or abscesses near the rectum. Pelvic CT was obtained in the ED and demonstrated a 1.1 x 1.2 cm abscess with inflammatory changes. He is overall healthy and does not take any medications. 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 His , ED nurse, noted that he recently had an atypical migraine that showed similar symptoms to a TIA in 2022. He had a brain MRI which was unremarkable for stroke. [facility] Medical History Migraines Testicular hernia Medical History no medical history Home Medications ?Medication ?Instructions ?Recorded ?Last Taken ?Type NK 02/26/19 Unknown History Allergy/AdvReac Type Severity Reaction Status Date / Time No Known Allergies Allergy Verified 06/05/25 09:51 Family History no significant family his Surgical History Hx of hernia repair Surgical History no surgical history Social History household members: spouse and children Smoking Status: Former smoker substance use type: does not use ROS Constitutional Constitutional: Reports systems reviewed and no addt'l complaints, except as documented Eyes Eyes: Reports systems reviewed and no addt'l complaints, except as documented ENT HEENT: Reports systems reviewed and no addt'l complaints, except as documented Cardiovascular Cardiovascular: Reports systems reviewed and no addt'l complaints, except as documented Respiratory/Chest Respiratory/Chest: Reports systems reviewed and no addt'l complaints, except as documented Gastrointestinal Gastrointestinal: Reports systems reviewed and no addt'l complaints, except as documented Genitourinary Genitourinary: Reports systems reviewed and no addt'l complaints, except as documented Musculoskeletal Musculoskeletal: Reports systems reviewed and no addt'l complaints, except as documented Integumentary Integumentary: Reports systems reviewed and no addt'l complaints, except as documented Neurologic Neurologic: Reports systems reviewed and no addt'l complaints, except as documented Psychiatric Psychiatric: Reports systems reviewed and no addt'l complaints, except as documented Endocrine Endocrinology: Reports systems reviewed and no addt'l complaints, except as documented Hematologic/Lymphatic Hematologic/Lymphatic: Reports systems reviewed and no addt'l complaints, except as documented Allergic/Immunologic Allergic/Immunologic: Reports systems reviewed and no addt'l complaints, except as documented Vital Signs Vital Signs Vital Signs: 06/05/25 09:51 06/05/25 11:50 06/05/25 12:30 Temperature 98.5 F 99.0 F Temperature Source Oral Oral Pulse Rate 121 H 90 114 H Respiratory Rate 18 16 16 Blood Pressure 147/103 H 130/90 H 123/79 H Blood Pressure Mean 117 103 93 Pulse Ox 99 100 99 Oxygen Delivery Method Room Air 06/05/25 12:34 Temperature 99.0 F Temperature Source Pulse Rate 112 H Respiratory Rate 16 Blood Pressure 123/79 H Blood Pressure Mean 93 Pulse Ox 100 Oxygen Delivery Method Weight Weight: 185 lb Body Mass Index (BMI) 26.5 Physical Exam Const alert, oriented x3 and no apparent distress HEENT normocephalic and head/scalp atraumatic Eyes PERRL Neck full ROM Resp normal respiratory effort and normal air movement Cardio regular rate and regular rhythm GI normal to inspection, nondistended, normoactive bowel sounds Narrative: Anus- left perianal pain to palpation Back/Spine no CVA tenderness Extremity normal to inspection Skin no rashes or lesions noted Neuro no focal motor deficits and no sensory deficits noted Psych mental status grossly normal, thought process normal and cooperative Results Lab / Micro Data 06/05/25 10:22 06/05/25 10:22 Labs: Laboratory Results - last 24 hr 06/05/25 10:05: Urine Color Straw, Urine Clarity Clear, Urine pH 6.5, Ur Specific [place] 1.005, Urine Protein Negative, Urine Glucose (UA) Normal, Urine Ketones Negative, Urine Occult Blood 10 H, Urine Nitrite Negative, Urine Bilirubin Negative, Urine Urobilinogen Normal, Ur Leukocyte Esterase Negative, Urine RBC 0 SEEN, Urine WBC 0 SEEN, Ur Squamous Epith Cells 0 SEEN, Urine Bacteria 0 SEEN, Urine Mucus 0 SEEN 06/05/25 10:22: WBC 4.1 L, RBC 5.18, Hgb 15.5, Hct 45.0, MCV 86.9, MCH 29.9, MCHC 34.4, RDW Std Deviation 37.7, RDW Coeff of Florencia 11.8, Plt Count 326, MPV 8.9, Immature Gran % (Auto) 0.200, Neut % (Auto) 14.5 L, Lymph % (Auto) 44.0 H, [place] % (Auto) 36.7 H, Eos % (Auto) 3.4, Baso % (Auto) 1.2 H, Absolute Neuts (auto) 0.6 L, Absolute Lymphs (auto) 1.82, Nucleated RBC % 0, Differential Comment COMMENT, Sodium 137, Potassium 3.8, Chloride 102, Carbon Dioxide 24.1, Anion Gap 11, BUN 11, Creatinine 0.98, Estim Creat Clear Calc 103.46, Est GFR (MDRD) Non-Af 100, BUN/Creatinine Ratio 11.2, Glucose 103 H, Calcium 9.2 Imaging Radiology Impression Pelvis CT 06/05/25 10:14 IMPRESSION: I suspect 11 mm x 12 mm lucency in the midportion of the perineum. This most likely represents a localized abscess. Surrounding inflammatory changes are seen. Reading Location: [id number] Assessment & Plan Assessment/Plan (1) Pain in male perineum: (2) Abscess, perirectal: PLAN: Plan I am seeing this patient in conjunction with Dr. Sherman. She will independently evaluate this patient. Patient is a pleasant 39 y/o M who presents with a 3 day history of rectal pain especially with movement and urinating. CT scan of pelvis confirmed a perirectal abscess with inflammatory changes is seen. Dr. Sherman will plan to perform an incision and drainage of perirectal abscess under [facility] local. Procedure details, risks and benefits have been explained. Patient may be held onto for observation pending the outcome of surgery. We have also discussed the patient being discharged following recovery if pain is well controlled. Patient and his have had the opportunity to ask and have questions answered. Patient verbally understands and agrees with the plan. Patient and patient's are understanding that they may have to repack the area for multiple days. Patient does not plan to return to work until next week. Patient's last known food intake was at 0800 AM and was a banana. Thank you for allowing us to participate in this patient's care. Charges/Coding Visit Charges OBSV E&M: 06810 Observ/hosp same date L2
--- NOTE | 2025-06-05 12:54 | PCM.PRE.AN2 ---
ASA Classification* ASA Classification ASA Classification: 2 Assessment & Plan Anesthesia* Anesthesia Assessment Anesthesia Assessment: Discussed sedation and/or anesthesia options, risks, benefits, and alternatives with patient/parents/legal guardian/POA. Questions invited. The patient/parents/legal guardian/POA seems to understand and agrees to proceed with anesthesia plan. Reviewed the physical assessment, medical history, allergy history and patient home medications list prior to surgery/procedure/anesthetic and documented any changes. Performed airway and anesthesia risk assessments. Anesthesia Type Anesthesia Type: General Anesthesia Focused Assessment* Temperature: 99.0 F Pulse Rate: 112 Blood Pressure: 123/79 Respiratory Rate: 16 Pulse Ox: 100 Airway Assessment Mouth opens: >3 cm Mallampati Score: II Labs Anesthesia Preop lab: CBC WBC, (4.4-11.0) 4.1 K/mm3 L Today, 10:22 RBC, (4.6-6.2) 5.18 M/mm3 Today, 10:22 Hgb, (13.0-16.5) 15.5 g/dL Today, 10:22 Hct, (40-54) 45.0 % Today, 10:22 Plt Count, (150-450) 326 K/mm3 Today, 10:22 CHEMISTRY Potassium, (3.3-5.1) 3.8 mmol/L Today, 10:22 Sodium, (133-145) 137 mmol/L Today, 10:22 BUN, (4-19) 11 mg/dL Today, 10:22 Creatinine, (0.70-1.20) 0.98 mg/dL Today, 10:22 Glucose, (70-99) 103 mg/dL H Today, 10:22 POC Glucose, (74-106) 108 mg/dL H 12/03/22, 15:08 COAG PT, (11.7-14.9) 13.0 SECONDS 12/03/22, 15:00 Pre-Assessment Diagnosis/Proposed Procedure Planned Operative Procedure(s): Drainage perirectal abscess. Anesthesia History Anesthesia History - clinical administrative coordinator: Anesthesia History - clinical administrative coordinator Hx Hospitalization No 04/15/19 14:46 Any Problems With Anesthesia No 06/05/25 12:30 Cholinesterase deficiency You/Your Family Experience fever (hyperthermia) with Relationship Recent Exposure to Contagious Disease Does patient have nerve No 06/05/25 12:30 stimulator Patient instructed to have device shut off --Does patient have Pacemaker or ICD? When Was Last Pacemaker Check QUESTION #4 FULL TEXT: You/Your Family Experience fever (hyperthermia) with Anesthesia Last Oral Intake Last Oral intake: Last Oral Intake NPO since Meds taken in AM with sips of water? Meds patient instructed to take am of surgery PONV PONV - clinical administrative coordinator: PONV - clinical administrative coordinator Female HX of Motion Sickness HX of N/V After Surgery Non-Smoker Duration of Surgery greater than 60 minutes Number of Risk Factors PONV Score Height & Weight Height & Weight: Anesthesia: Height & Weight Height 5 ft 10 in 06/05/25 12:30 Weight: 83.915 kg 06/05/25 12:30 Body Mass Index (BMI) 26.5 06/05/25 12:30 Respiratory Assessment Respiratory Assessment - clinical administrative coordinator: Respiratory Tract Infection Hx - clinical administrative coordinator Hx Respiratory Tract Infection STOP Sleep Apnea STOP Sleep Apnea - clinical administrative coordinator: STOP Sleep Apnea - clinical administrative coordinator Hx Hypertension No 06/05/25 12:30 Hx Sleep Apnea No 06/05/25 12:30 CPAP BIPAP Do you snore loudly (louder Yes 06/05/25 12:30 than talking or can be heard Do you often feel tired/ Yes 06/05/25 12:30 fatigued/ sleepy during daytime? Has anyone observed you stop No 06/05/25 12:30 breathing during sleep? STOP Results Positive 06/05/25 12:30 QUESTION #5 FULL TEXT : Do you snore loudly (louder than talking or can be heard through closed doors)? 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 Specify any problems Hx of Preganancy in last 3 Months Nurse Filling Out Transfusion & Questions: Date: Time: Patient unable to answer at this time (ie. confused, unrespo /Reproduction History /Reproductive History - clinical administrative coordinator: /Reproductive Hx- clinical administrative coordinator Hx Now No 06/05/25 12:30 Gestational Age (in weeks): EDC: Hx Hx Para Hx Section SAB Active Medications Active Medications: Current Medications Generic Name Dose Route Start Last Admin Trade Name Freq PRN Reason Stop Dose Admin Piperacillin Sod/Tazobactam 50 mls @ 100 mls/hr 06/05/25 12:34 Sod 3.375 gm/ Sodium Chloride IV 06/05/25 13:03 X1 ONE [facility] Medical History Migraines Testicular hernia Medical History no medical history Home Medications ?Medication ?Instructions ?Recorded ?Last Taken ?Type NK 02/26/19 Unknown History Allergy/AdvReac Type Severity Reaction Status Date / Time No Known Allergies Allergy Verified 06/05/25 09:51 Family History no significant family his Surgical History Hx of hernia repair Surgical History no surgical history Social History household members: spouse and children Smoking Status: Former smoker substance use type: does not use Review of Systems (Anesthesia) ROS Narrative System reviewed and no additional complaints, except as documented.
[2025-06-05] MEDS: Lactated Ringers 500 ML IV (13:19)
[2025-06-05] MEDS: Piperacil/Tazobactam 3.375 GM/50 ML ML IV (13:19)
[2025-06-05] MEDS: Lidocaine 1% (5 ml sdv) 5 ML Vial 10 ML IV (13:26)
[2025-06-05] MEDS: fentaNYL 100 MCG/2 ML Ampul 150 MCG IV (13:48)
--- NOTE | 2025-06-05 14:08 | DCINST_ITS ---
Discharge Instructions
--- NOTE | 2025-06-05 14:08 | OP.PCM_ITS ---
Operative Report (Standard)
--- NOTE | 2025-06-05 14:08 | PCM.OPRPT ---
Operative Report (Standard) Operative Information Date of Procedure: 06/05/25 Pre-Operative Diagnosis: Perirectal abscess Post-Operative Diagnosis: Same Surgery/Procedure Performed: Exam under anesthesia dealer relationship manager: No Type of Anesthesia: General/Supplemental RN Documented Start/Stop Times: Operation Date: 06/05/25 10:45 Case Time Into Pre-Op 06/05/25 12:50 Anesthesia Start 06/05/25 13:19 Into Room 06/05/25 13:19 Procedure Start 06/05/25 13:47 Procedure End 06/05/25 13:57 Anesthesia End 06/05/25 14:13 Out of Room 06/05/25 14:13 Into Recovery 06/05/25 14:15 Out of Recovery 06/05/25 14:43 Into Phase II Recovery 06/05/25 14:44 Out of Phase II 06/05/25 15:25 Procedure Start Time: 13:47 Procedure Stop Time: 13:57 Select all DRAINS/GRAFTS/IMPLANTS that apply: None Special Medications: Zosyn 3.375 g IV given due to rectal abscess Estimated Blood Loss: <5 cc Specimen collected: No Description of surgery: The patient was brought into the operating room and general anesthesia was induced. He was placed in prone jackknife lithotomy position. A timeout was completed verifying correct patient, procedure, site, position, and special equipment prior to beginning the procedure. The buttocks were taped apart. Perineum was prepared prepped and draped in standard sterile fashion. Local anesthesia was injected as a perianal nerve block-0.5% Marcaine with epi . Anus carefully dilated. Small Hill-Rosales retractor was introduced. There is noted to be purulent drainage at the anus. At 12:00 about 1 to 2 cm inside the rectum there is a small area of drainage purulent material. However unable to find that small area again as there is no more further drainage appearing material. CT abdomen pelvis only showed about a 1 x 1 cm abscess-this was likely drained with pressure of the retractors. 4 x 4 was placed at the anus. The patient tolerated procedure well and was extubated and taken to the postanesthesia care unit in stable condition. Surgical Findings: See operative report Complications Complications: No
--- NOTE | 2025-06-05 14:08 | EX.PCM.DISCH ---
Discharge Instructions Procedure Rectal Surgery Diet Discharge Diet: No restrictions Activity Discharge Activity: Return to Normal Activity and May Not Drive (while you are taking narcotic pain medications. Do not drive, work with heavy equipment or sign legal documents for 24 hours after your surgery.) Additional Activity Instructions:: Be aware that pain medications may cause nausea. You should typically eat light foods as you take your pain medications. Pain medications may also cause constipation, if you have difficulty with this please discuss with your doctor. Dressing / Incision Call your doctor if your incision/area has: Increased Pain/ Swelling Additional Dressing/Incision Instructions:: Sitz baths PRN/daily Follow Up Care Please Follow Up With: Elizabeth Sherman MD When: Please call [phone] to schedule a follow up appointment to be seen 7 days after surgery. Test Results: Test results from this visit will be discussed in further detail at your follow-up appointment, if applicable. Discharge Plan Admission Attending Provider: Elizabeth Sherman Primary Care Provider: Ramon Ojeda Instructions Print Language: Mohawk Discharge Orders/Prescriptions Prescriptions: New oxycodone 5 mg capsule 5 mg PO Q6H PRN (Reason: pain) 3 Days Qty: 5 0RF amoxicillin-pot clavulanate 875-125 mg tablet 1 tab PO Q12H Qty: 14 0RF Referrals / Follow Up: Ramon Ojeda DO [Primary Care Provider, Family Practice] Disposition Disposition (needs filled in before D/C Order can be placed): Home, Self Care
--- NOTE | 2025-06-05 14:22 | POSTOP.ANE_ITS ---
Anesthesia: Postop Eval I
--- NOTE | 2025-06-05 14:22 | PCM.POST.ANE ---
Anesthesia: Postop Eval I Current Vital Signs Temperature: 98.7 F Pulse Rate: 118 Blood Pressure: 140/93 Respiratory Rate: 16 Pulse Ox: 96 Oxygen Delivery Method: Room Air Assessment Airway patent: Yes Spontaneous unlabored respirations: Yes Mental status: Awake and Calm nausea: No Vomiting: No Anesthesia Complication: No Fluid Hydration Crystalloid volume administer (ml): 500 Total IV fluid infused: 500 Progress Note Anesthesia document: Postop Eval 1 completed: Yes
--- NOTE | 2025-06-05 14:39 | POSTOPAN2_ITS ---
Anesthesia Postop Eval I Sum
--- NOTE | 2025-06-05 14:39 | PCM.POSTANE2 ---
Anesthesia Postop Eval I Sum Postop Eval Completion status Anesthesia document: Postop Eval 1 completed: Yes Anesthesia Postop Eval I Summary Anesthesia Postop Eval I Summary: Anesthesia Postop Eval I: Assessment Summary Airway patent Yes 06/05/25 14:22 METAL SASH SETTER.BARRETTOBMarine Spontaneous unlabored Yes 06/05/25 14:22 METAL SASH SETTER.VIGNESH respirations Mental status Awake,Calm 06/05/25 14:22 METAL SASH SETTER.VIGNESH nausea No 06/05/25 14:22 METAL SASH SETTER.VIGNESH Vomiting No 06/05/25 14:22 METAL SASH SETTER.VIGNESH Anesthesia Postop Eval I: Fluid Summary Crystalloid volume administer 500 06/05/25 14:22 METAL SASH SETTER.BARRETTOBY (ml) Colloids volume administered ( ml) Blood Product volume administered (ml) Total IV fluid infused 500 06/05/25 14:22 METAL SASH SETTER.VIGNESH Anesthesia Postop Eval I: Summary Notes Anesthesia Complication No 06/05/25 14:22 METAL SASH SETTER.VIGNESH Anesthesia Complication Comment: Post-operative progress note Anesthesia: Postop Eval II Evaluation Mental status: Awake Pain Level: 1 nausea: No Vomiting: No
== END 2025-06-05 15:25 | disposition home or self-care (01) ==
LOC: ED 12:16 → SDC 12:36 → ACINP 12:36
PROVIDERS: Emergency Provider Emergency Medicine; PCP Family Medicine; Visit Provider Surgery
PROC: (CPT 46040; principal; 2025-06-05 10:30)
DX: K61.1 Rectal abscess (principal); R10.20 Pelvic and perineal pain unspecified side; Z87.891 Personal history of nicotine dependence; Z53.09 Procedure and treatment not carried out because of other contraindication
CPT/HCPCS: 46040; 00902; 72193; 80048; 81001; 85025; 99284; Q9967; A4216; J2405

== ENCOUNTER 2025-06-13 15:56 | Outpatient (CLI) | payer OTHER, SELFPAY | END 2025-06-13 23:59 | disposition home or self-care (01) | LOC: LABSPEC 15:56 | PROVIDERS: PCP Family Medicine; Referring Provider Surgery; Visit Provider Surgery | DX: K61.1 Rectal abscess (principal) | CPT/HCPCS: 87070; 87075; 87077; 87186; 87205 ==

== ENCOUNTER 2025-07-11 09:34 | Day surgery (SDC) | payer OTHER, SELFPAY ==
--- NOTE | 2025-07-07 13:55 | PAT.ANESEVAL ---
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 When Was Last Pacemaker Check QUESTION #4 FULL TEXT: You/Your Family Experience fever (hyperthermia) with Anesthesia Last Oral Intake Last Oral intake: Last Oral Intake NPO since Meds taken in AM with sips of water? Meds patient instructed to take am of surgery PONV PONV - customer operations representative: PONV - customer operations representative Female No 07/07/25 13:02 HX of Motion Sickness No 07/07/25 13:02 HX of N/V After Surgery No 07/07/25 13:02 Non-Smoker No 07/07/25 13:02 Duration of Surgery greater No 07/07/25 13:02 than 60 minutes Number of Risk Factors PONV Score Height & Weight Height & Weight: Anesthesia: Height & Weight Height 5 ft 10 in 06/05/25 12:30 Respiratory Assessment Respiratory Assessment - customer operations representative: Respiratory Tract Infection Hx - customer operations representative Hx Respiratory Tract Infection No 07/07/25 13:02 STOP Sleep Apnea STOP Sleep Apnea - customer operations representative: STOP Sleep Apnea - customer operations representative Hx Hypertension No 07/07/25 13:02 Hx Sleep Apnea No 07/07/25 13:02 CPAP No 07/07/25 13:02 BIPAP Do you snore loudly (louder Yes 07/07/25 13:02 than talking or can be heard Do you often feel tired/ No 07/07/25 13:02 fatigued/ sleepy during daytime? Has anyone observed you stop No 07/07/25 13:02 breathing during sleep? STOP Results Negative 07/07/25 13:02 QUESTION #5 FULL TEXT : Do you snore loudly (louder than talking or can be heard through closed doors)? 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 Specify any problems Hx of Preganancy in last 3 N/A 07/07/25 13:02 Months Nurse Filling Out Transfusion MGRIFFITH 07/07/25 13:02 & Questions: Date: 07/07/25 07/07/25 13:02 Time: 13:04 07/07/25 13:02 Patient unable to answer at this time (ie. confused, unrespo /Reproduction History /Reproductive History - customer operations representative: /Reproductive Hx- customer operations representative Hx Now Gestational Age (in weeks): EDC: Hx Hx Para Hx Section SAB Does the father of the baby or his family experience fever w Father of the baby Malignant Hypertension history comment PFSH Medical History (Updated 07/07/25 @ 13:11 by Olinda Apple) Alcohol use Back pain Chews tobacco History of echocardiogram History of stress test Migraines Testicular hernia Home Medications ?Medication ?Instructions ?Recorded ?Last Taken ?Type NK 07/07/25 Unknown History Allergy/AdvReac Type Severity Reaction Status Date / Time No Known Allergies Allergy Verified 07/07/25 13:00 Family History no significant family his Surgical History (Updated 07/07/25 @ 13:02 by Olinda Apple) History of surgery Hx of hernia repair Social History household members: spouse and children Smoking Status: Current every day smoker tobacco type: smokeless tobacco substance use type: does not use Audit: Pertinent Findings Pertinent Findings EKG Perinent findings: 12/03/2022. Sinus tachycardia 115 bpm. Left axis deviation. Recommendation Anesthesia Recommendation Anesthesia recommendation: OPTIMIZED for anesthesia
[2025-07-11] VITALS (8 sets, daily range): BP systolic 98–131; BP diastolic 75–90; PULSE 75–98; RESP 14–16; TEMP 35.8–37.1; O2SAT 94–98; BMI 25.8
[2025-07-11] MEDS: Lactated Ringers 1,000 ML 15 ML IV (10:06)
--- NOTE | 2025-07-11 10:37 | PCM.PRE.AN2 ---
ASA Classification* ASA Classification ASA Classification: 1 Assessment & Plan Anesthesia* Anesthesia Assessment Anesthesia Assessment: Discussed sedation and/or anesthesia options, risks, benefits, and alternatives with patient/parents/legal guardian/POA. Questions invited. The patient/parents/legal guardian/POA seems to understand and agrees to proceed with anesthesia plan. Reviewed the physical assessment, medical history, allergy history and patient home medications list prior to surgery/procedure/anesthetic and documented any changes. Performed airway and anesthesia risk assessments. Anesthesia Type Anesthesia Type: MAC History Source History Obtained from:: Patient and Chart Anesthesia Focused Assessment* Temperature: 98.8 F Pulse Rate: 98 Blood Pressure: 131/90 Respiratory Rate: 16 Pulse Ox: 98 Oxygen Delivery Method: Room Air Airway Assessment Mouth opens: >3 cm Mallampati Score: II Teeth Condition: Intact Neck Range of motion (ROM): Full ROM Labs Anesthesia Preop lab: CBC WBC, (4.4-11.0) 4.1 K/mm3 L 06/05/25, 10: RBC, (4.6-6.2) 5.18 M/mm3 06/05/25, 10:22 Hgb, (13.0-16.5) 15.5 g/dL 06/05/25, 10: Hct, (40-54) 45.0 % 06/05/25, 10:22 Plt Count, (150-450) 326 K/mm3 06/05/25, 10:22 CHEMISTRY Potassium, (3.3-5.1) 3.8 mmol/L 06/05/25, 10: Sodium, (133-145) 137 mmol/L 06/05/25, 10:22 BUN, (4-19) 11 mg/dL 06/05/25, 10:22 Creatinine, (0.70-1.20) 0.98 mg/dL 06/05/25, 10: Glucose, (70-99) 103 mg/dL H 06/05/25, 10:22 POC Glucose, (74-106) 108 mg/dL H 12/03/22, 15:08 COAG PT, (11.7-14.9) 13.0 SECONDS 12/03/22, 15:00 Pre-Assessment Diagnosis/Proposed Procedure Planned Operative Procedure(s): COLONOSCOPY Anesthesia History 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 When Was Last Pacemaker Check QUESTION #4 FULL TEXT: You/Your Family Experience fever (hyperthermia) with Anesthesia Last Oral Intake Last Oral intake: Last Oral Intake NPO since 00:00 07/11/25 09:53 Meds taken in AM with sips of water? Meds patient instructed to take am of surgery PONV PONV - director of psychology: PONV - director of psychology Female No 07/07/25 13:02 HX of Motion Sickness No 07/07/25 13:02 HX of N/V After Surgery No 07/07/25 13:02 Non-Smoker No 07/07/25 13:02 Duration of Surgery greater No 07/07/25 13:02 than 60 minutes Number of Risk Factors PONV Score Height & Weight Height & Weight: Anesthesia: Height & Weight Height 5 ft 10 in 07/11/25 09:53 Weight: 81.647 kg 07/11/25 09:53 Body Mass Index (BMI) 25.8 07/11/25 09:53 Respiratory Assessment Respiratory Assessment - director of psychology: Respiratory Tract Infection Hx - director of psychology Hx Respiratory Tract Infection No 07/07/25 13:02 STOP Sleep Apnea STOP Sleep Apnea - director of psychology: STOP Sleep Apnea - director of psychology Hx Hypertension No 07/07/25 13:02 Hx Sleep Apnea No 07/07/25 13:02 CPAP No 07/07/25 13:02 BIPAP Do you snore loudly (louder Yes 07/07/25 13:02 than talking or can be heard Do you often feel tired/ No 07/07/25 13:02 fatigued/ sleepy during daytime? Has anyone observed you stop No 07/07/25 13:02 breathing during sleep? STOP Results Negative 07/07/25 13:02 QUESTION #5 FULL TEXT : Do you snore loudly (louder than talking or can be heard through closed doors)? 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 Specify any problems Hx of Preganancy in last 3 N/A 07/07/25 13:02 Months Nurse Filling Out Transfusion MGRIFFITH 07/07/25 13:02 & Questions: Date: 07/07/25 07/07/25 13:02 Time: 13:04 07/07/25 13:02 Patient unable to answer at this time (ie. confused, unrespo /Reproduction History /Reproductive History - director of psychology: /Reproductive Hx- director of psychology Hx Now Gestational Age (in weeks): EDC: Hx Hx Para Hx Section SAB Does the father of the baby or his family experience fever w Father of the baby Malignant Hypertension history comment Active Medications Active Medications: Current Medications Generic Name Dose Route Start Last Admin Trade Name Freq PRN Reason Stop Dose Admin Lactated Ringer's 1,000 mls @ 15 mls/hr 07/11/25 09:45 07/11/25 10:06 IV 15 mls/hr .Q48H KAYLYN Administration PFSH Medical History Alcohol use Back pain Chews tobacco History of echocardiogram History of stress test Migraines Testicular hernia Home Medications ?Medication ?Instructions ?Recorded ?Last Taken ?Type NK 07/07/25 Unknown History Allergy/AdvReac Type Severity Reaction Status Date / Time No Known Allergies Allergy Verified 07/11/25 09:52 Surgical History History of surgery Hx of hernia repair Social History household members: spouse and children Smoking Status: Current every day smoker tobacco type: smokeless tobacco substance use type: does not use Review of Systems (Anesthesia) ROS Narrative System reviewed and no additional complaints, except as documented.
--- NOTE | 2025-07-11 10:46 | HP.PCM_ITS ---
History and Physical Date of Admission: 07/11/25 Date of Service: 06/23/25 MR#: [id number] Acct: [id number] Name: ANSLEY DICKENS Rep #: [id number] : 1985 Provider: Dr. Elizabeth Sherman MD Age/Sex: 39/M Location: [facility] Status: Signed Intake Vital Signs 06/05/2512:30 Height 5 ft 10 in Intake Visit Reasons: WOUND CHECK Chief Complaint: wound check Allergies No Known Allergies Allergy (Verified 06/23/25 08:32) PFSH Medical History Migraines Testicular hernia Surgical History Hx of hernia repair Surgical History no surgical history Family History no significant family his Social History household members: spouse and children Smoking Status: Former smoker substance use type: does not use HPI HPI HPI: 39-year-old male presents for follow-up status post I&D of perirectal abscess. Patient states area is healed denies any abdominal pain or pain at his rectum. Patient never had previous colonoscopy. Patient's dad did have several polyps in his late 40s at age 56 cardiac. Patient denies family history of colon cancer. Patient has bowel movements daily denies any blood. Exam Const General: cooperative, healthy appearing, comfortable and no acute distress HENMT Head: normocephalic and atraumatic Neck Neck: supple Resp Effort & Inspection: normal respiratory effort Cardio Rate: regular rate GI Inspection: non-distended Palpation: no hernias and nontender Skin General: no rashes or lesions noted Neuro General: CN's II-XI intact bilaterally Extrem General: normal to inspection Psych Mental Status: mental status grossly normal Attitude: cooperative Assessment and Plan Assessment and Plan (1) Abscess, perirectal: Status: Acute Comment: Status post I&D Orders: Orders Colonoscopy 07/11/25 Plan I have discussed the above with the patient. I have offered the patient colonoscopy for evaluation. I have explained the risks/benefits of the procedure and described the procedure. I have discussed the risks with the patient, including but not limited to: infection, bleeding, perforation of the GI tract requiring emergency surgery, inability to complete the procedure, injury to any internal organs, complications of anesthesia, etc. - the patient understands and agrees to proceed. I have answered all the patient's questions to the patient's satisfaction and the patient has no further questions. The patient has been given instructions for the colon cleansing preparation. 1 day clears MiraLAX Dulcolax prep Elizabeth Sherman M.D. Pager: [phone] [facility] [address] [place] [address], [address] [place] [address] Office: [phone] Coding Level of Care Code Off vis,est,level 3 Diagnoses Abscess, perirectal K61.1 06/24/25 1014 <Electronically signed by Elizabeht Sherman MD> Date Elizabeth Sherman MD
--- NOTE | 2025-07-11 11:00 | COLBX_PTH ---
PATIENT: ANSLEY DICKENS LOC: EN U#:[id number] AGE/SX: 39/M ROOM: RE07/11/[address]: Dr. Elizabeth Sherman MD : 1985 BED: DIS: 07/11/2025 SPEC #: [id number] RECD: 07/11/25 13:16 STATUS: VENKATESH RESurendra #: [id number] KARIN: 07/11/25 11:[address]: Elizabeth Sherman DEPT: SURGICAL PATHOLOGY RECD BY: Gela Elise ENTERED: 07/12/25 06:37 SP TYPE: COLON BX OTHR DR: Dr. Ramon Ojeda DO Tissues: A - Sigmoid colon biopsy B - Rectum, NOS Procedures: Surgery Specimen Level IV HEADER OPERATION: Colonoscopy with biopsy and polypectomy PRE-OP DIAGNOSIS: Abscess, perirectal TISSUE SUBMITTED: A- Sigmoid colon polyp biopsy, B- Rectal polyp biopsy MICROSCOPIC DIAGNOSIS A. Colon, sigmoid, polyp, polypectomy: - Hyperplastic polyp. B. Rectum, polyp, polypectomy: - Mucosal prolapse with small mucosal lymphoid aggregates and hyperplastic crypt change. - Negative for dysplasia. MICROSCOPIC DESCRIPTION Slides are reviewed. GROSS DESCRIPTION A. Received in fixative is one container labeled with the patient's name and designated Sigmoid colon polyp biopsy. The specimen consists of multiple irregular fragments of villalobos tissue that in aggregate measure 1.6 x 0.6 x 0.2 cm. The specimen is totally submitted in one cassette. B. Received in fixative is one container labeled with the patient's name and designated Rectal polyp biopsy. The specimen consists of three irregular fragments of villalobos tissue that measure, each measuring 0.3cm. The specimen is totally submitted in one cassette. OR 07/11/2025 CPT:93066f0
--- OUTSIDE RECORDS SUMMARY | 2025-07-11 11:47 | XMS RPT_ITS | CCD ---
Author Organization [facility] ion [facility] Care Team Providers Care Boarding Specialist Name Role Phone Stacy LEAYenyTito EKATERINA Attending Unavailabl e SELF, SELF Referring Unavailable Robotham, Elizabeth Consulting Unavailable Lizeth Elkins Attending Unavailable Rusty, Ramon Primary Care Unavailable Robotham, Elizabeth Attending Unavailable Rusty, Ramon Primary Care Unavailable Robotham, Elizabeth Attending Unavailable Robotham, Elizabeth Referring Unavailable Rusty, Ramon Primary Care Unavailable Rusty, Ramon Referring Unavailable Robotham, Elizabeth Attending Unavailable Rusty, Ramon Primary Care Unavailable Lizeth Elkins Attending Unavailable Rusty, Ramon Primary Care Unavailable Rusty, Ramon Referring Unavailable Problems Problem Classification Problem Date Documented Date Episodic/Chronic Anal and rectal conditions (2 sources) Rectal abscess; Translations: [Rectal abscess] Onset: 06-14-2025 Episodic Other nervous system disorders (1 source) Other acute postprocedural pain; Translations: [Other acute postprocedural pain] Onset: 06-14-2025 Episodic Unclassified (2 sources) Pelvic and perineal pain unspecified side; Translations: [Pelvic and perineal pain unspecified side] Onset: 06-14-2025 Results Test Name Value Interpretation Reference Range Facil ity Surgery Visit Reporton 06-14 Surgery Visit Report [facility] [address] [place] [address] OFFICE VISIT Date of Service: 06/14/25 MR#: [id number] Acct: [id number] Name: ANSLEY DICKENS Rep #: [id number] : 1985 Provider: RADHA sánchez Age/Sex: 39/M Location: [facility] Status: Signed Intake Vital Signs 06/05/25 12:30 Height 5 ft 10 in Intake Visit Reasons: WOUND REPACKING Chief Complaint: repack perirectall abscess [employer] Worker Required: No Is patient in pain?: Yes (rectum) Allergies No Known Allergies Allergy (Verified 06/14/25 09:08) Medications ???Medication ???Instructions ???Recorded ???Confirmed ???Type amoxicillin 875 mg-potassium 1 tab PO BID #10 tabs 06/13/2507/27 Rx clavulanate 125 mg tablet oxycodone 5 mg capsule 5 mg PO Q6H PRN pain 2 days #7 cap s 06/13/25 06/14/25 Rx Have you fallen in the past year?: No Subjective Details: Patient is a 39 y/o M I am following s/p incision and drainage of rectal abscess by Dr. Sherman on 06/13/25. Patient tolerated the procedure well. He notes feeling much improved. He notes the pressure is no longer present. He returns for a packing change. He is currently on Augmentin. Culture is pending with preliminary demonstrating GNR lactose surgical consultant. Objective Details: Anus- 11 o'clock position packing was removed. There was evidence of bloody drainage. No purulent drainage noted. 1/4 iodoform packing was replaced. This was very painful for the patient. Folded 4 x 4 dry guaze was applied over top of the packing and secured with tape. Coding Level of Care Code Global Post Op Diagnoses Abscess, perirectal K61.1 [facility] Medical History Migraines Testicular hernia Medical History no medical history Surgical History Hx of hernia repair Surgical History no surgical history Family History no significant family his Social History household members: spouse and children Smoking Status: Former smoker substance use type: does not use Assessment and Plan (No Qualifiers) Assessment and Plan (1) Abscess, perirectal: Status: Acute Plan: Recommend removing the packing tomorrow and start sitz bathes daily with Epsom salts Continue oral Augmentin Await final culture to determine if antibiotic needs changed Follow-up in [address] Sherman 06/14/25 1111 Date Lizeth Duckworth Signature: Date (if applicable) CC: Normal [facility] Wound Cultureon 06-14-2025 WC gram stain and culture Identification and sensitivity to follow. GNR lactose surgical consultant Amount Growth 3+ Normal [facility] Comment on above: Performed By: #### M 100.2000, M100.3000 #### [facility] [address] [place], [address] Gram Stainon 06-13-2025 GS gram stain and culture Gram Stain 4+ Gram negative rods 4+ White Blood Cells No Epithelial cells Normal [facility] Comment on above: Performed By: #### M 100.2000, M100.3000 #### [facility] [address] [place], [address] Basic Metabolic Profile (BMP )on 06-05-2025 BUN/CRE 11.2 RATIO Normal 10-20 [facility] Comment on above: Performed By: #### L 100.0100, L500.2500 #### [facility] [address] [place], [address] Calcium [Mass/Vol] 9.2 mg/dL Normal 7.6-11.0 [facility] Comment on above: Performed By: #### L 100.0100, L500.2500 #### [facility] [address] [place], [address] Chloride [Moles/Vol] 102 mmol/L Normal 98-108 [facility] Comment on above: Performed By: #### L 100.0100, L500.2500 #### [facility] [address] [place], [address] CO2 [Moles/Vol] 24.1 mmol/L Normal 21.0-32.0 [facility] Comment on above: Performed By: #### L 100.0100, L500.2500 #### [facility] [address] [place], [address] Creatinine [Mass/Vol] 0.98 mg/dL Normal 0.70-1.20 [facility] Comment on above: Performed By: #### L 100.0100, L500.2500 #### [facility] [address] [place], [address] ECRCL 103.46 ml/min Normal 50-250 [facility] Comment on above: Performed By: #### L 100.0100, L500.2500 #### [facility] [address] [place], [address] GAP 11 Normal 5-15 [facility] Comment on above: Performed By: #### L 100.0100, L500.2500 #### [facility] [address] [place], [address] GFR/1.73 sq M.predicted among non-blacks MDRD (S/P/Bld) [Vol rate/Area] 100 mL/min/{1.73_m2} Normal >60 [facility] Comment on above: Result Comment: mL/m in/1.73m2 CKD-EPI Creatinine Equation (2020) Performed By: #### L 100.0100, L500.2500 #### [facility] [address] [place], [address] Glucose [Mass/Vol] 103 mg/dL High 70-99 [facility] Comment on above: Performed By: #### L 100.0100, L500.2500 #### [facility] [address] [place], [address] Potassium [Moles/Vol] 3.8 mmol/L Normal 3.3-5.1 [facility] Comment on above: Performed By: #### L 100.0100, L500.2500 #### [facility] [address] [place], [address] Sodium [Moles/Vol] 137 mmol/L Normal 133-145 [facility] Comment on above: Performed By: #### L 100.0100, L500.2500 #### [facility] [address] [place], [address] Urea nitrogen [Mass/Vol] 11 mg/dL Normal 4-19 [facility] Comment on above: Performed By: #### L 100.0100, L500.2500 #### [facility] [address] [place], [address] CBC W/Diff, Automatedon 11-0 SMEAR COMMENT COMMENT Normal [facility] Comment on above: Result Comment: NEUT ROPENIA. MONOCYTOSIS. Performed By: #### L 100.0100, L500.2500 #### [facility] [address] [place], [address] Discharge Instructionon 11-0 Discharge Instruction [facility] Medical Records Department [address] [place] [address] Instructions for Home/Discharge Instructions 06/05/25 1408 MR#: [id number] Acct: [id number] Name: ANSLEY DICKENS Rep #: [id number] : 1985 39 From: Elizabeth Sherman MD PCP: Dr. Ramon Ojeda, DO Status[place] [facility] Discharge Instructions Procedure Rectal Surgery Diet Discharge Diet: No restrictions Activity Discharge Activity: Return to Normal Activity and May Not Drive (while you are taking narcotic pain medications. Do not drive, work with heavy equipment or sign legal documents for 24 hours after your surgery.) Additional Activity Instructions:: Be aware that pain medications may cause nausea. You should typically eat light foods as you take your pain medications. Pain medications may also cause constipation, if you have difficulty with this please discuss with your doctor. Dressing / Incision Call your doctor if your incision/area has: Increased Pain/ Swelling Additional Dressing/Incision Instructions:: Sitz baths PRN/daily Follow Up Care Please Follow Up With: Elizabeth Sherman MD When: Please call [phone] to schedule a follow up appointment to be seen 7 days after surgery. Test Results: Test results from this visit will be discussed in further detail at your follow-up appointment, if applicable. Discharge Plan Admission Attending Provider: Elizabeth Sherman Primary Care Provider: Ramon Ojeda Instructions Print Language: Yi Discharge Orders/Prescriptions Prescriptions: New oxycodone 5 mg capsule 5 mg PO Q6H PRN (Reason: pain) 3 Days Qty: 5 0RF amoxicillin-pot clavulanate 875-125 mg tablet 1 tab PO Q12H Qty: 14 0RF Referrals / Follow Up: Ramon Ojeda DO [Primary Care Provider, Family Practice] Disposition Disposition (needs filled in before D/C Order can be placed): Home, Self Care 06/05/25 2528 Elizabeth Sherman MD CC: Dr. Ramon Ojeda DO Signed Normal [facility] Emergency Department Summary on 06-05-2025 Emergency Department Summary [facility] Medical Records Department [address] [place] [address] Emergency Department Summary 06/05/25 MR#: [id number] Acct: [id number] Name: ANSLEY DICKENS Rep #: [id number] : 1985 39 From: William Reza DO PCP: Dr. Ramon Ojeda DO Status:[facility] Location: [facility] History of Present Illness Chief Complaint: Back Informant: patient and spouse/S.O. Narrative Narrative: 39-year-old male presenting to the emergency room for the evaluation of perineal pain. Patient states that on Thursday he had some discomfort in the perineum. Progressively has worsened. No limiting motion. Send sure if he is had any fevers but nothing documented. Denies any urinary symptoms but does note that at the end of urination when he has contraction of the pelvic floor and feels significant pain. He states that it is around the anus to the base of the penis. States not seeing any swelling or drainage. No history of inflammatory bowel disease. No history of this. PFSH PFS Medical History Migraines Testicular hernia Medical History no medical history Home Medications ???Medication ???Instructions ???Recorded ???Last Taken ???Type NK 02/26/19 Unknown History Allergy/AdvReac Type Severity Reaction Status Date / Time No Known Allergies Allergy Verified 06/05/25 09:51 Family History no significant family his Surgical History Hx of hernia repair Surgical History no surgical history Social History household members: spouse and children Smoking Status: Former smoker substance use type: does not use ROS ROS ED Constitutional Constitutional ED: Reports sweats; Denies chills, fever(s) or weight loss Eyes Eyes: Denies change in vision or diplopia ENT ENT ED: Denies ear pain, rhinorrhea or sore throat Cardiovascular Cardiovascular: Denies chest pain, orthopnea, palpitations or racing heartbeat Respiratory/Chest Respiratory/Chest: Denies cough, dyspnea or orthopnea Gastrointestinal Gastrointestinal: Denies abdominal pain, diarrhea, nausea or vomiting Genitourinary Genitourinary ED: Reports other Details: See history of present illness ; Denies dysuria, hematuria or urinary frequency Musculoskeletal Musculoskeletal: Denies arthralgias or myalgias Integumentary Denies abscess or rash Neurologic Neurologic: Denies headache(s) or weakness Psychiatric Psychiatric: Denies anxiety, depression, suicidal ideation or suicidal thoughts Endocrine Endocrinology: Denies polydipsia, polyphagia or polyuria Allergic/Immunologic Allergic/Immunologic ED: Denies mouth swelling, tongue swelling or urticaria EXAM Physical Exam Const Vital Signs: 06/05/25 09:51 06/05/25 11:50 06/05/25 12:30 Temperature 98.5 F 99.0 F Temperature Source Oral Oral Pulse Rate 121 H 90 114 H Respiratory Rate 18 16 16 Blood Pressure 147/103 H 130/90 H 123/79 H Blood Pressure Mean 117 103 93 Pulse Ox 99 100 99 Oxygen Delivery Method Room Air 06/05/25 12:34 06/05/25 12:55 Temperature 99.0 F 99.0 F Temperature Source Pulse Rate 112 H 112 H Respiratory Rate 16 16 Blood Pressure 123/79 H 123/79 H Blood Pressure Mean 93 Pulse Ox 100 100 Oxygen Delivery Method Positive well nourished and well developed Constitutional Narrative: Patient appears very comfortable in the bed. General Appearance ED: well developed HEENT Reports normocephalic, head/scalp atraumatic and moist mucous membranes Eyes PERRL and EOMs intact bilaterally Neck no lymphadenopathy, supple and no JVD Resp normal respiratory effort and clear to auscultation bilaterally Cardio regular rate, regular rhythm and no murmurs GI normal to inspection, nondistended, normoactive bowel sounds and non-tender Palpation: soft Narrative: Scrotal penile and testicular exam appears normal. I do not appreciate any significant fullness in the perineum swelling or erythema. There is tenderness particularly on the left perineal aspect of the anus. No significant hemorrhoidal disease. Back/Spine no CVA tenderness and normal ROM Extremity normal to inspection General Extremety ED: Negative for edema General Extremity: Negative for edema Neuro oriented x3 and CN's II-XII intact bilaterally Sensorium / Orientation: alert Motor Exam: strength 5/5 throughout Psych mental status grossly normal Mood Affect: Negative for depressed or tearful Skin no rashes or lesions noted and no wounds MDM MDM MDM Narrative Medical decision making narrative: Differential diagnosis includes but not limited to perirectal/perineal abscess UTI prostatitis hemorrhoidal d (more content not included)... Normal [facility] MR/POSTOP.[facility] 06-05-2025 MR/POSTOP.[facility] Medical Records Department [address] [place] [address] Anesthesia Postop Eval I 06/05/25 1422 MR#: [id number] Acct: [id number] Name: ANSLEY DICKENS Rep #: [id number] : 1985 39 From: Kaylah Monte CRNA PCP: Dr. Ramon Ojeda, DO Status:REG [facility] Y Race: C Location: [place] [address] Anesthesia: Postop Eval I Current Vital Signs Temperature: 98.7 F Pulse Rate: 118 Blood Pressure: 140/93 Respiratory Rate: 16 Pulse Ox: 96 Oxygen Delivery Method: Room Air Assessment Airway patent: Yes Spontaneous unlabored respirations: Yes Mental status: Awake and Calm nausea: No Vomiting: No Anesthesia Complication: No Fluid Hydration Crystalloid volume administer (ml): 500 Total IV fluid infused: 500 Progress Note Anesthesia document: Postop Eval 1 completed: Yes 06/05/25 1422 Date Kaylahjad Monte ORTHOTICS PROSTHETICS ASSISTANT Cosigner Signature: Date CC: Signed Normal [facility] MR/[id number] 06-05-2025 [facility] Medical Records Department [address] [place] [address] Anesthesia Postop Eval II 06/05/25 1439 MR#: [id number] Acct: [id number] Name: ANSLEY DICKENS Rep #: [id number] : 1985 39 From: Derek North MD PCP: Dr. Ramon Ojeda, DO Status:REG SD Y Race: C Location: [place] [address] Anesthesia Postop Eval I Sum Postop Eval Completion status Anesthesia document: Postop Eval 1 completed: Yes Anesthesia Postop Eval I Summary Anesthesia Postop Eval I Summary: Anesthesia Postop Eval I: Assessment Summary Airway patent Yes 06/05/25 14:22 ORTHOTICS PROSTHETICS ASSISTANT.BARRETTOBY Spontaneous unlabored Yes 06/05/25 14:22 ORTHOTICS PROSTHETICS ASSISTANT.BARRETTOBMarine respirations Mental status Awake,Calm 06/05/25 14:22 ORTHOTICS PROSTHETICS ASSISTANT.SKOBY nausea No 06/05/25 14:22 ORTHOTICS PROSTHETICS ASSISTANT.SKOBY Vomiting No 06/05/25 14:22 ORTHOTICS PROSTHETICS ASSISTANT.SKOBY Anesthesia Postop Eval I: Fluid Summary Crystalloid volume administer 500 06/05/25 14:22 ORTHOTICS PROSTHETICS ASSISTANT.SKOBY (ml) Colloids volume administered ( ml) Blood Product volume administered (ml) Total IV fluid infused 500 06/05/25 14:22 ORTHOTICS PROSTHETICS ASSISTANT.SKOBY Anesthesia Postop Eval I: Summary Notes Anesthesia Complication No 06/05/25 14:22 ORTHOTICS PROSTHETICS ASSISTANT.SKOBY Anesthesia Complication Comment: Post-operative progress note Anesthesia: Postop Eval II Evaluation Mental status: Awake Pain Level: 1 nausea: No Vomiting: No 06/05/25 1439 Date Derek Duckworth Signature: Date CC: Signed Normal [facility] Operative Reporton 5 Operative Report [facility] Medical Records Department [address] [place] [address] Operative Report 06/05/25 1408 MR#: [id number] Acct: [id number] Name: ANSLEY DICKENS Rep #: [id number] : 1985 39 From: Elizabeth Sherman MD PCP: Dr. Ramon Ojeda, DO Status:[facility] Location[place] [facility] Operative Report (Standard) Operative Information Date of Procedure: 06/05/25 Pre-Operative Diagnosis: Perirectal abscess Post-Operative Diagnosis: Same Surgery/Procedure Performed: Exam under anesthesia shells inspector: No Type of Anesthesia: General/Supplemental RN Documented Start/Stop Times: Operation Date: 06/05/25 10:45 Case Time Into Pre-Op 06/05/25 12:50 Anesthesia Start 06/05/25 13:19 Into Room 06/05/25 13:19 Procedure Start 06/05/25 13:47 Procedure End 06/05/25 13:57 Anesthesia End 06/05/25 14:13 Out of Room 06/05/25 14:13 Into Recovery 06/05/25 14:15 Out of Recovery 06/05/25 14:43 Into Phase II Recovery 06/05/25 14:44 Out of Phase II 06/05/25 15:25 Procedure Start Time: 13:47 Procedure Stop Time: 13:57 Select all DRAINS/GRAFTS/IMPLAN TS that apply: None Special Medications: Zosyn 3.375 g IV given due to rectal abscess Estimated Blood Loss: <5 cc Specimen collected: No Description of surgery: The patient was brought into the operating room and general anesthesia was induced. He was placed in prone jackknife lithotomy position. A timeout was completed verifying correct patient, procedure, site, position, and special equipment prior to beginning the procedure. The buttocks were taped apart. Perineum was prepared prepped and draped in standard sterile fashion. Local anesthesia was injected as a perianal nerve block-0.5% Marcaine with epi . Anus carefully dilated. Small Hill-Rosales retractor was introduced. There is noted to be purulent drainage at the anus. At 12:00 about 1 to 2 cm inside the rectum there is a small area of drainage purulent material. However unable to find that small area again as there is no more further drainage appearing material. CT abdomen pelvis only showed about a 1 x 1 cm abscess-this was likely drained with pressure of the retractors. 4 x 4 was placed at the anus. The patient tolerated procedure well and was extubated and taken to the postanesthesia care unit in stable condition. Surgical Findings: See operative report Complications Complications: No 06/05/251716 Cosigner Signature (if applicable): CC: Dr. Ramon Ojeda DO; Dr. Elizabeth Sherman MD Signed Normal [facility] Pelvis WITH IV Contraston Pelvis WITH IV Contrast [facility] Imaging Services [address] [place] [id number] Pelvis WITH IV Contrast MR#: [id number] Acct: [id number] Name: ANSLEY DICKENS Rep #: [id number] : 1985 M 39 From: Yves barboza MD PCP: Dr. Ramon Ojeda DO Status: REG ER Study: Pelvis WITH IV Contrast Date of Exam: 06/05/25 Exam# [id number] Ordering Dr: William Reza DO PROCEDURE: PELVIS WITH IV CONTRAST 06/05/2025 REASON FOR EXAM: PERINEAL PAIN Sacral pain, scrotal pain. TECHNIQUE: Procedure Code: CTPELW Modality: CT Procedure: PELVIS WITH IV CONTRAST CONTRAST: Isovue-300 VOLUME: 90 mL RADIATION DOSE SUMMARY: CTDlvol: 17.26 mGy DLP: 630.3 mGycm COMPARISON: None FINDINGS: There is a 11 mm by 12 mm lucency in the midportion of the perineum. This may represent a localized abscess. Surrounding inflammatory changes. Bladder: Unremarkable. Ureters: Unremarkable Prostate: Central prostatic calcifications. Bowel: Unremarkable. Appendix: Unremarkable Lymph nodes: Small benign-appearing bilateral inguinal lymph nodes. Vasculature: Unremarkable. Findings suggestive of prior bilateral vasectomies. Peritoneum / Retroperitoneum: Unremarkable Bones: Unremarkable. CT/Pelvis WITH IV Contrast IMPRESSION: I suspect 11 mm x 12 mm lucency in the midportion of the perineum. This most likely represents a localized abscess. Surrounding inflammatory changes are seen. Reading Location: [id number] CC: Dr. William Reza, DO; Dr. Ramon Ojeda, DO [employer] Field Agent: Signed Normal [facility] Urinalysis, Completeon 06-05 BACTERIA 0 SEEN Normal None Seen [facility] Comment on above: Order Comment: MOLINA BROWN PUT 1105 ON URINE TUBES FOR COLLECT TIME, IT WAS RECEIVED AT 1028ISH. CALLED ER TO VERIFY IT WAS SUPPOSED TO BE 1005 FOR THE TIME. NURSE ALEKS LIMON. CLEAN CATCH Performed By: #### L 400.0001 #### [facility] [address] [facility] [place], [place], [id number] EPI,SQUAMOUS 0 SEEN Normal 0-5 [facility] Comment on above: Order Comment: MOLINA BROWN PUT 1105 ON URINE TUBES FOR COLLECT TIME, IT WAS RECEIVED AT 1028ISH. CALLED ER TO VERIFY IT WAS SUPPOSED TO BE 1005 FOR THE TIME. NURSE ALEKS LIMON. CLEAN CATCH Performed By: #### L 400.0001 #### [facility] [address] [place], [place], [id number] Mucus Ql (Urine sed) 0 SEEN Normal [facility] Comment on above: Order Comment: MOLINA BROWN PUT 1105 ON URINE TUBES FOR COLLECT TIME, IT WAS RECEIVED AT 1028ISH. CALLED ER TO VERIFY IT WAS SUPPOSED TO BE 1005 FOR THE TIME. NURSE ALEKS LIMON. CLEAN CATCH Performed By: #### L 400.0001 #### [facility] [address] [place], [address] RBC 0 SEEN Normal 0-5 [facility] Comment on above: Order Comment: MOLINA BROWN PUT 1105 ON URINE TUBES FOR COLLECT TIME, IT WAS RECEIVED AT 1028ISH. CALLED ER TO VERIFY IT WAS SUPPOSED TO BE 1005 FOR THE TIME. NURSE ALEKS LIMON. CLEAN CATCH Performed By: #### L 400.0001 #### [facility] [address] [place], [address] WBC 0 SEEN Normal 0-5 [facility] Comment on above: Order Comment: MOLINA BROWN PUT 1105 ON URINE TUBES FOR COLLECT TIME, IT WAS RECEIVED AT 1028ISH. CALLED ER TO VERIFY IT WAS SUPPOSED TO BE 1005 FOR THE TIME. NURSE ALEKS LIMON. CLEAN CATCH Performed By: #### L 400.0001 #### [facility] [address] [place], [address] Encounters Encounter Date Encounter Type Care Provider Facility Start: 06-14-2025 End: 06-14-2025 ambulatory Lizeth HOUSE [place] [place] Start: 06-13-2025 ambulatory [facility] y:[facility] Start: 06-13-2025 End: 06-13-2025 ambulatory Ramon Ojeda [place] [place] Start: 06-05-2025 End: 06-05-2025 ambulatory [facility] Facility:[facility] Start: 05-09-2021 ambulatory LISET EKATERINA Whaley cility:[facility] Payers Date Payer Category Payer Private Health Insurance [id number] 2025 Self-pay 2017 Private Health Insurance [id number] 1985 Unknown [id number] Unknown [id number] 2.16.8 [id number] Unknown [id number] 2.16.8 [id number] Unknown [id number] 2.16.8 [id number] Unknown [id number] 2.16.8 [id number] Unknown [id number] 2.16.8 [id number] Clinical Note 06-05-2025 Note Date & Type Note Facility 06-05-2025 Note [facility] Medical Records Department [address] [place] [address] History Physical Exam 06/05/25 1237 MR#: [id number] Acct: [id number] Name: ANSLEY DICKENS Rep #: [id number] : 1985 39 From: Lizeth HOUSE PA-C PCP: Dr. Ramon Ojeda, DO Status:[place] [facility] Location: [place] [address] HPI - General General Date of Admission: 06/05/25 Date of Service: 06/05/25 Chief Complaint: Rectal pain HPI Narrative ANSLEY DICKENS, is a 39 M who presents 3 day history of rectal pain. He notes discomfort started Thursday. He states he was moving heavy items on and the pain started Thursday morning. He noted on Thursday the pain became progressively worse especially after urination. He describes the pain as someone taking a knife to the rectum. Patient waited until Thursday to see his PCP who sent him to the ED. 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 He notes nausea associated with the pain. He denies any drainage. He notes his temperature elevated to 100.0 degrees Fahrenheit. He denies having any similar episodes of rectal pain or abscesses near the rectum. Pelvic CT was obtained in the ED and demonstrated a 1.1 x 1.2 cm abscess with inflammatory changes. He is overall healthy and does not take any medications. 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 His , ED nurse, noted that he recently had an atypical migraine that showed similar symptoms to a TIA in 2022. He had a brain MRI which was unremarkable for stroke. [facility] Medical History Migraines Testicular hernia Medical History no medical history Home Medications ???Medication ???Instructions ???Recorded ???Last Taken ???Type NK 02/26/19 Unknown History Allergy/AdvReac Type Severity Reaction Status Date / Time No Known Allergies Allergy Verified 06/05/25 09:51 Family History no significant family his Surgical History Hx of hernia repair Surgical History no surgical history Social History household members: spouse and children Smoking Status: Former smoker substance use type: does not use ROS Constitutional Constitutional: Reports systems reviewed and no addt'l complaints, except as documented Eyes Eyes: Reports systems reviewed and no addt'l complaints, except as documented ENT HEENT: Reports systems reviewed and no addt'l complaints, except as documented Cardiovascular Cardiovascular: Reports systems reviewed and no addt'l complaints, except as documented Respiratory/Chest Respiratory/Chest: Reports systems reviewed and no addt'l complaints, except as documented Gastrointestinal Gastrointestinal: Reports systems reviewed and no addt'l complaints, except as documented Genitourinary Genitourinary: Reports systems reviewed and no addt'l complaints, except as documented Musculoskeletal Musculoskeletal: Reports systems reviewed and no addt'l complaints, except as documented Integumentary Integumentary: Reports systems reviewed and no addt'l complaints, except as documented Neurologic Neurologic: Reports systems reviewed and no addt'l complaints, except as documented Psychiatric Psychiatric: Reports systems reviewed and no addt'l complaints, except as documented Endocrine Endocrinology: Reports systems reviewed and no addt'l complaints, except as documented Hematologic/Lymphatic Hematologic/Lymphatic: Reports systems reviewed and no addt'l complaints, except as documented Allergic/Immunologic Allergic/Immunologic: Reports systems reviewed and no addt'l complaints, except as documented Vital Signs Vital Signs Vital Signs: 06/05/25 09:51 06/05/25 11:50 06/05/25 12:30 Temperature 98.5 F 99.0 F Temperature Source Oral Oral Pulse Rate 121 H 90 114 H Respiratory Rate 18 16 16 Blood Pressure 147/103 H 130/90 H 123/79 H Blood Pressure Mean 117 103 93 Pulse Ox 99 100 99 Oxygen Delivery Method Room Air 06/05/25 12:34 Temperature 99.0 F Temperature Source Pulse Rate 112 H Respiratory Rate 16 Blood Pressure 123/79 H Blood Pressure Mean 93 Pulse Ox 100 Oxygen Delivery Method Weight Weight: 185 lb Body Mass Index (BMI) 26.5 Physical Exam Const alert, oriented x3 and no apparent distress HEENT normocephalic and head/scalp atraumatic Eyes PERRL Neck full ROM Resp normal respiratory effort and normal air movement Cardio regular rate and regular rhythm GI normal to inspection, nondistended, normoactive bowel sounds Narrative: Anus- left perianal pain to palpation Back/Sp (more content not included)... [facility] Summary Purpose Family History No Family History Records FoundNo Family History Records Found Advance Directives No Advanced Directives Records FoundNo Advanced Directives Records Found Additional Source Comments (unrecognized sect ion and content) No Status Records FoundNo Status Records Found INFORMATION SOURCE (unrecogn ized section and content) DATE CREATED AUTHOR 05/29/2021 [facility] DATE CREATED AUTHOR AUTHOR'S ORGANIZ ATION 06/15/2025 [facility] FOR RECORDS PERTAINING TO PATIENTS WHO ARE OR HAVE BEEN ENROLLED IN A CHEMICAL DEPENDENCY/SUBSTANCEABUSE PROGRAM, SOME INFORMATION MAY BE OMITTED. This clinical summary was aggregated from multiple sources. Caution should be exercised in using it in the provision of clinical care. This summary normalizes information from multiple sources, and as a consequence, information in this document may materially change the coding, format and clinical context of patient data. In addition, data may be omitted in some cases. CLINICAL DECISIONS SHOULD BE BASED ON THE PRIMARY CLINICAL RECORDS. [employer] provides no warranty or guarantee of the accuracy or completeness of information in this document.
--- NOTE | 2025-07-11 12:41 | OP.COLON_ITS ---
Patient Name: Trey Dersa Procedure Date: 07/11/2025 12:02 PM Date of : 1985 Age: 39 Procedure: Colonoscopy Indications: Abnormal CT of the GI tract, Rectal pain, hx of perirectal abscess Providers: Elizabeth Sherman MD Referring MD: Ramon Ojeda Medicines: Monitored Anesthesia Care Patient Profile: This is a 39 year old male. Last Colonoscopy: none. The patient's first colonoscopy is today. Complications: No immediate complications. Procedure: Pre-Anesthesia Assessment: - Prior to the procedure, a History and Physical was performed, and patient medications and allergies were reviewed. The patient's tolerance of previous anesthesia was also reviewed. The risks and benefits of the procedure and the sedation options and risks were discussed with the patient. All questions were answered, and informed consent was obtained. Prior Anticoagulants: The patient has taken no anticoagulant or antiplatelet agents. ASA Grade Assessment: Per anesthesia. After reviewing the risks and benefits, the patient was deemed in satisfactory condition to undergo the procedure. After I obtained informed consent, the scope was passed under direct vision. Throughout the procedure, the patient's blood pressure, pulse, and oxygen saturations were monitored continuously. The colonoscope was introduced through the anus and advanced to the cecum, identified by the appendiceal orifice, ileocecal valve and palpation. The colonoscopy was performed without difficulty. The patient tolerated the procedure well. The quality of the bowel preparation was good. Scope In: 12:08:50 PM Scope Withdrawal Time 0 hours 20 minutes 0 seconds Scope Out: 12:31:29 PM Total Procedure Duration Time 0 hours 22 minutes 39 seconds Findings: Hemorrhoids were found on perianal exam. Non-bleeding internal hemorrhoids were found. The hemorrhoids were Grade I (internal hemorrhoids that do not prolapse). Four sessile polyps were found in the sigmoid colon. The polyps were less than 5 mm in size. These polyps were removed with a hot snare. Resection and retrieval were complete. Three sessile polyps were found in the rectum. The polyps were less than 5 mm in size. These polyps were removed with a cold biopsy forceps. Resection and retrieval were complete. The exam was otherwise without abnormality on direct and retroflexion views. Impression: - Hemorrhoids found on perianal exam. - Non-bleeding internal hemorrhoids. - Four less than 5 mm polyps in the sigmoid colon, removed with a hot snare. Resected and retrieved. - Three less than 5 mm polyps in the rectum, removed with a cold biopsy forceps. Resected and retrieved. - The examination was otherwise normal on direct and retroflexion views. Recommendation: - Discharge patient to home. - Resume previous diet. - Continue present medications. - Await pathology results. - Repeat colonoscopy in 5-10 years for surveillance based on pathology results. Procedure Code(s): --- Professional --- 21214, Colonoscopy, flexible; with removal of tumor(s), polyp(s), or other lesion(s) by snare technique [id number], 59, Colonoscopy, flexible; with biopsy, single or multiple Diagnosis Code(s): --- Professional --- K64.0, First degree hemorrhoids D12.5, Benign neoplasm of sigmoid colon D12.8, Benign neoplasm of rectum K62.89, Other specified diseases of anus and rectum R93.3, Abnormal findings on diagnostic imaging of other parts of digestive tract CPT copyright 2021 [employer]. All rights reserved. The codes documented in this report are preliminary and upon horseradish maker review may be revised to meet current compliance requirements. MD Elizabeth Mejia MD 07/11/2025 12:41:31 PM This report has been signed electronically. Number of Addenda: 0 Note Initiated On: 07/11/2025 12:02 PM
--- NOTE | 2025-07-11 12:41 | PCM.POST.ANE ---
Anesthesia: Postop Eval I Current Vital Signs Temperature: 97 F Pulse Rate: 82 Blood Pressure: 106/79 Respiratory Rate: 16 Pulse Ox: 95 Oxygen Delivery Method: Room Air Assessment Airway patent: Yes Spontaneous unlabored respirations: Yes Mental status: Asleep nausea: No Vomiting: No Anesthesia Complication: No Fluid Hydration Crystalloid volume administer (ml): 800 Total IV fluid infused: 800 Progress Note Anesthesia document: Postop Eval 1 completed: Yes
--- NOTE | 2025-07-11 12:42 | OP.PROVAT_ITS ---
07/11/2025 Ramon Ojeda [address] [place] [address] Re : Colonoscopy procedure for Trey Deras Dear Dr. Ojeda This procedure was performed on Friday, July 11, 2025. My impressions and recommendations are as follows: Impressions : - Hemorrhoids found on perianal exam. - Non-bleeding internal hemorrhoids. - Four less than 5 mm polyps in the sigmoid colon, removed with a hot snare. Resected and retrieved. - Three less than 5 mm polyps in the rectum, removed with a cold biopsy forceps. Resected and retrieved. - The examination was otherwise normal on direct and retroflexion views. Recommendations : - Discharge patient to home. - Resume previous diet. - Continue present medications. - Await pathology results. - Repeat colonoscopy in 5-10 years for surveillance based on pathology results. My findings are described in the full procedure note, which is enclosed. If I can be of further assistance, please feel free to contact me at Doctor phone number(s): , Work: . Sincerely, MD Elizabeth Mejia MD 07/11/2025 12:41:31 PM This report has been signed electronically.
--- NOTE | 2025-07-11 15:25 | PCM.POSTANE2 ---
Anesthesia Postop Eval I Sum Postop Eval Completion status Anesthesia document: Postop Eval 1 completed: Yes Anesthesia Postop Eval I Summary Anesthesia Postop Eval I Summary: Anesthesia Postop Eval I: Assessment Summary Airway patent Yes 07/11/25 12:42 [email or web address] Spontaneous unlabored Yes 07/11/25 12:42 [email or web address] respirations Mental status Asleep 07/11/25 12:42 [email or web address] nausea No 07/11/25 12:42 [email or web address] Vomiting No 07/11/25 12:42 [email or web address] Anesthesia Postop Eval I: Fluid Summary Crystalloid volume administer 800 07/11/25 12:42 [email or web address] (ml) Colloids volume administered ( ml) Blood Product volume administered (ml) Total IV fluid infused 800 07/11/25 12:42 [email or web address] Anesthesia Postop Eval I: Summary Notes Anesthesia Complication No 07/11/25 12:42 [email or web address] Anesthesia Complication Comment: Post-operative progress note Anesthesia: Postop Eval II Evaluation Mental status: Awake and Calm Pain Level: 1 nausea: No Vomiting: No Complications Anesthesia Complication: No
== END 2025-07-11 13:16 | disposition home or self-care (01) ==
LOC: EN 09:37 → AC 09:39
PROVIDERS: PCP Family Medicine; Referring Provider Family Medicine; Visit Provider Surgery
PROC: 0DJD8ZZ Inspection of Lower Intestinal Tract, Via Natural or Artificial Opening Endoscopic (ICD-10-PCS; CPT 45378; principal; 2025-07-11 10:55)
DX: K63.5 Polyp of colon (principal); K64.0 First degree hemorrhoids; F17.220 Nicotine dependence, chewing tobacco, uncomplicated; K62.3 Rectal prolapse
CPT/HCPCS: 45385; 45380; 88305; J2405